=== PATIENT | male | born 1955 | race Hispanic/Latino ===

== ENCOUNTER 2018-10-13 12:46 | Inpatient (IN) | payer MEDICARE ==
[2018-10-13 12:53] VITALS: BMI 28.8
[2018-10-13] MEDS ORDERED: Piperacill/Tazo 3.375gm in Dex 3.375 GM/50 ML BAG IVPB STA (13:45)
[2018-10-13] MEDS ORDERED: Vancomycin 1 gm/NS 200 ml 1 GM/200 ML BAG IVPB STA (13:45)
[2018-10-13] MEDS ORDERED: Sodium Chloride 0.9% 1,000 ML IV ONE (13:45)
--- NOTE | 2018-10-13 13:45 | C.PDOC ---
History Of Present Illness 63 y/o male presents to the ED with new-onset redness to right foot for 1 week. Associated with worsening weakness, difficulty walking, malaise, over the past week. Patient is s/p right 1st toe amputation in May 2018. States he has not been able to follow up due to recent move to [facility], surgeon is from [facility]. No fever. Had 1 loose bowel movement yesterday. Also complains of decreased appetite. Patient is using cane/walker however lives in 2nd floor walk-up and feels that he cannot get around. account relationship manager is at bedside, reports patient withheld certain aspects of history. Patients roommate stated patient had expressed depression, not wanting to live anymore. Patient has hx of depression, unknown medication or compliance. PMD NONE Time Seen by Provider: 10/13/18 13:17 Chief Complaint (Nursing): Weakness/Neurological Deficit History Per: Patient History/Exam Limitations: no limitations Onset/Duration Of Symptoms: Days Current Symptoms Are (Timing): Still Present Past Medical History Reviewed: Historical Data, Nursing Documentation, Vital Signs Vital Signs: Last Vital Signs Temp 97.7 F 10/13/18 12:53 Pulse 105 H 10/13/18 13:05 Resp 16 10/13/18 13:05 BP 93/56 L 10/13/18 13:05 Pulse Ox 95 10/13/18 13:05 - Medical History PMH: Diabetes, HTN, Hyperlipidemia Other Surgeries: Right great toe amputation Family History: States: No Known Family Hx - Social History Hx Alcohol Use: No Hx Substance Use: No - Immunization History Hx Tetanus Toxoid Vaccination: No Hx Influenza Vaccination: No Hx Pneumococcal Vaccination: No Review Of Systems Except As Marked, All Systems Reviewed And Found Negative. Constitutional: Positive for: Weakness, Malaise. Negative for: Fever, Chills Cardiovascular: Negative for: Chest Pain Respiratory: Negative for: Shortness of Breath Gastrointestinal: Negative for: Nausea, Vomiting Musculoskeletal: Positive for: Foot Pain, Other (Redness to right foot) Neurological: Negative for: Numbness Physical Exam - Physical Exam Appears: Non-toxic, No Acute Distress Skin: Warm, Dry Head: Atraumatic, Normacephalic Eye(s): bilateral: Normal Inspection, PERRL, EOMI Oral Mucosa: Moist Neck: Normal ROM Chest: Symmetrical Respiratory: No Accessory Muscle Use, Other (NARD) Extremity: Normal ROM, No Calf Tenderness, Deformity (Right 1st toe amputation), No Swelling, Other (Cellulitis from distal right foot to mid-foot, no drainage) Pulses: Left Dorsalis Pedis: Normal, Right Dorsalis Pedis: Normal Neurological/Psych: Oriented x3, Normal Speech, Other (No focal deficits) ED Course And Treatment - Laboratory Results Result Diagrams: 10/13/18 14:04 10/13/18 14:04 ECG: Interpreted By Me ECG Rhythm: Sinus Rhythm ECG Interpretation: Normal Rate From EC O2 Sat by Pulse Oximetry: 95 (RA) Pulse Ox Interpretation: Normal - Radiology CXR: Interpreted by Me (NEG) - Other Rad R FOOT XR X-Ray: Interpreted by Me Interpretation: distal 1st metatarsal amputation, no acute findings Progress - Re-Evaluation Re-evaluation Note: 10/13/18 13:44 COUNTY DIRECTOR [employer] CEZAR [phone] 10/13/18 14:39 CODE SEPSIS. S/P IVF VS SIMPROVED 10/13/18 14:[address] KRISHNAMURTHY MED AUTOMOTIVE DETAILER 10/13/18 14:57 D/W DR KRISHNAMURTHY WILL ADMIT. WILL ARRANGE PODIATRY CONSULT - Data Reviewed Data Reviewed: Lab, Diagnostic imaging, EKG, Old records - Critical Care Citical Care: Excluding Proc Time Critical Care Time: 90 minutes Medical Decision Making Medical Decision Making: Initial Plan: --Labs --EKG --Chest x-ray --Right foot x-ray --IV fluids --Will start IV vanco and zosyn Records reviewed: No prior records at [facility]. Unknown cardiac status. Will defer sepsis protocol IV bolus at this time. Imaging reviewed, no acute findings. Disposition Counseled Patient/Family Regarding: Studies Performed, Diagnosis - Disposition Disposition: HOSPITALIZED Disposition Time: 14:58 Condition: SERIOUS - POA Present On Arrival: None - Clinical Impression Clinical Impression: Cellulitis of foot - Scribe Statement The provider has reviewed the documentation as recorded by the Oh Zavala Provider Attestation: All medical record entries made by the Oh were at my direction and personally dictated by me. I have reviewed the chart and agree that the record accurately reflects my personal performance of the history, physical exam, medical decision making, and the department course for this patient. I have also personally directed, reviewed, and agree with the discharge instructions and disposition.
[2018-10-13 14:14] LABS: BASO # 0.1 K/uL (0.0-0.2); BASO % 0.6 % (0.0-2.0); EOS % 0.4 % (0.0-4.0); HEMOGLOBIN 14.6 g/dL (12.0-18.0); LYMPH # 1.4 K/uL (1.0-4.3); LYMPH % 13.6 % (20.0-40.0); MEAN CELL VOLUME 86.1 fL (80.0-94.0); MEAN CORPUSCULAR HEMOGLOBIN 28.5 pg (27.0-31.0); MEAN CORPUSCULAR HGB CONC 33.1 g/dL (33.0-37.0); MEAN PLATELET VOLUME 7.6 fL (7.2-11.7); MONO # 0.7 K/uL (0.0-0.8); MONO % 7.1 % (0.0-10.0); NEUT % 78.3 % (50.0-75.0); NRBC % 0.1 % (0.0-2.0); RBC 5.12 Mil/uL (4.40-5.90); RED CELL DISTRIBUTION WIDTH 14.5 % (11.5-14.5); WHITE BLOOD COUNT 10.2 K/uL (4.8-10.8)
--- NOTE | 2018-10-13 14:22 | RAD ---
HISTORY: Sepsis Patient COMPARISON: None available. TECHNIQUE: Chest, one view. FINDINGS: Examination limited by habitus. LUNGS: Azygos lobe, anatomic variant. No focal consolidation. Please note that chest x-ray has limited sensitivity for the detection of pulmonary masses. PLEURA: No significant pleural effusion identified. No definite pneumothorax . CARDIOVASCULAR: Cardiomegaly. No significant atherosclerotic calcification present. OSSEOUS STRUCTURES: No acute osseous abnormality identified. VISUALIZED UPPER ABDOMEN: Unremarkable. OTHER FINDINGS: None. IMPRESSION: No focal consolidation. Cardiomegaly.
[2018-10-13] MEDS ORDERED: Sodium Chloride 0.9% 2,000 ML ONE (14:24)
[2018-10-13] MEDS ORDERED: Piperacillin/Tazobact 3.375 gm 100 ML IVPB ONE (14:24)
[2018-10-13 14:26] LABS: INR 1.3; PROTHROMBIN TIME 13.7 SECONDS (9.7-12.2)
[2018-10-13 14:28] LABS: ALB/GLOB RATIO 0.9 (1.0-2.1); ALBUMIN 4.2 g/dL (3.5-5.0); ALT/SGPT 28 U/L (21-72); AST/SGOT 26 U/L (17-59); BLOOD UREA NITROGEN 17 mg/dL (9-20); CALCIUM 9.5 mg/dl (8.6-10.4); GFR NON-AFRICAN AMERICAN 51
[2018-10-13] MEDS ORDERED: Piperacillin/Tazobact 3.375 gm 100 ML IVPB STA (14:32)
[2018-10-13 14:38] LABS: SQUAMOUS EPITHIAL < 1 /hpf (0-5); URINE BILIRUBIN NEGATIVE (NEGATIVE); URINE BLOOD NEGATIVE (NEGATIVE); URINE CLARITY Hazy (Clear); URINE COLOR Yellow (YELLOW); URINE GLUCOSE (UA) NORMAL (Normal); URINE LEUKOCYTE ESTERASE TRACE Leu/uL (Negative); URINE PROTEIN 1+ mg/dL (NEGATIVE)
[2018-10-13] MEDS ORDERED: Sodium Chloride 0.9% 250 ML IV ONE (14:38)
[2018-10-13 14:55] LABS: VENOUS BLOOD GAS BASE EXCESS -1.1 mmol/L (0.0-2.0); VENOUS BLOOD GAS PCO2 34 mmHg (40-60); VENOUS BLOOD GAS PO2 31 mm/Hg (30-55); VENOUS BLOOD PH 7.43 (7.32-7.43)
--- NOTE | 2018-10-13 15:00 | CP.PCM.HP ---
History of Present Illness - History of Present Illness History of Present Illness: COMPREHENSIVE HISTORY & PHYSICAL EXAM HPI 63 years old white male admitted with cellulitis of the right foot. A few months ago patient had amputation of the right big toe and [facility] in [place]. After that patient was admitted to rehab and patient had a complete healing of the right foot. Recently patient is complaining of now swelling of the right lower extremity with pain discomfort. Patient prese nted to [facility] and found to be tachycardic with slightly hypotensive. Currently patient has a cellulitis of the right foot. PAST HIST. Patient has a history of type II diabetes [id number] hypertension and hypercholesteremia. Patient has no history of coronary artery disease or carotid artery disease patient also has been checked for peripheral vascular disease and he denies it. Patient has no other medical illness in the past PERSONAL HIST: Smoking. N Alcohol. N Allergy N Travel_- . FAMILY HIST : ROS : Constitutional: Negative for weight change, chills, night sweats, fatigue and usage of assist device. Eyes: Negative for redness, swelling, itching, discharge, vision changes, blurry vision, double vision, glaucoma, cataracts, Ears: Negative for hearing loss, ringing, , tinnitus, vertigo Nose: Negative for rhinorrhea, stuffiness, sniffing, itching, postnasal drip, discoloration, nasal congestion and epistaxis. Throat: Negative for throat clearing, sore throat, hoarseness, difficulty swallowing and difficulty speaking. Respiratory: Negative for cough, chest tightness, sputum or phlegm, chronic cough, hemoptysis, wheezing, snoring at night, pleuritic chest pain and daytime somnolence. Cardiovascular: Negative for chest pain, palpitations, orthopnea, PND, Edema of legs, leg cramps, angina, claudication, , irregular heartbeat, Neurology: Negative for irritability, muscle weakness, numbness and tingling, seizures, tremors, migraines, slurred speech, syncope, memory loss, mood changes, recurrent headaches Gastrointestinal: Negative for difficulty swallowing, diarrhea, constipation, black stools, rectal bleeding, nausea, flatulence, reflux, poor appetite, changes in bowel habits, abdominal pain Genitourinary: Negative for frequent urination, hematuria, discharge, incontinence, urinary retention, frequent UTI, Psychiatric: Negative for depression, anxiety/panic, suicidal tendencies, Musculoskeletal: Negative for swollen joints, back pain, , neck pain, morning stiffness of joints, . Skin: Negative for rash, ulcers, itching, dry skin and pigmented lesions. P/E: Constitutional: Appears stated age and in no apparent distress. Head: Normocephalic. Ears: External ear canals patent without inflammation. Tympanic membranes intact with normal light reflex and landmark. Eyes: Pupils are central, bilaterally equal, symmetrical and reacts to light with normal movements and no icterus or pallor. Nose: External nares are patent. Mucosa is pink Mouth-Throat: Good general appearance and condition. No post-pharyngeal/oropharyngeal erythema and tonsillar hypertrophy. Good dental hygiene. Neck-Lymphatic: Neck is supple with normal ROM, no thyromegaly, lymph nodes or masses. JVD is normal with no carotid bruit. Lungs: Clear to percussion and auscultation with bilateral normal air entry. Cardiovascular: S1 and S2 are normal with no murmurs, gallops and rub. GI Exam: No hepatomegaly. Abdomen is soft and non-tender. No Organomegaly , masses or hernias are evident and bowel sounds are normal and active. Neurology: Higher function and all cranial nerves intact, with no gross motor or sensory deficit. Superficial and deep reflexes are normal with downwards p lanters. No cerebellar deficit with normal gait. Musculoskeletal: No tender spots with normal curvature of the spine with no swelling or restricted ROM of the small and large joints. Right foot the big toe is amputated and there is surrounding cellulitis and swelling of all the toes. The swelling is extending all the way up to do part of the foreleg. Extremities: Homans sign absent. Intact pulses with pitting edemaof the right leg Skin: No rash, eruptions or abnormal skin pigmentation LAB/RADIOLOGY: ASSESMENT : Status post amputation of the right big toe with reoccurrence of cellulitis of the right foot with possible osteomyelitis. Type II diabetes hypertension hypercholesterolemia stable. Plan Local wound care as per pediatrics IV antibiotics and manage sugars Present on Admission - Present on Admission Any Indicators Present on Admission: No Past Patient History - Past Social History Smoking Status: Never Smoked - CARDIAC Hx Hypertension: Yes - ENDOCRINE/METABOLIC Hx Endocrine Disorders: Yes Hx Diabetes Mellitus Type 2: Yes - MUSCULOSKELETAL/RHEUMATOLOGICAL Hx Musculoskeletal Disorders: Yes - PSYCHIATRIC Hx Substance Use: No - SURGICAL HISTORY Hx Surgeries: Yes Other/Comment: RIGHT GREAT TOE AMPUTATION - ANESTHESIA Hx Anesthesia: Yes Meds Allergies/Adverse Reactions: Allergies Allergy/AdvReac Type Severity Reaction Status Date / Time No Known Allergies Allergy Verified 10/13/18 12:51 Results - Vital Signs Recent Vital Signs: Last Vital Signs Temp 97.7 F 10/13/18 12:53 Pulse 91 H 10/13/18 14:35 Resp 16 10/13/18 14:35 BP 110/72 10/13/18 14:35 Pulse Ox 95 10/13/18 14:59 - Labs Result Diagrams: 10/13/18 14:04 10/13/18 14:04 Labs: Laboratory Results - last 24 hr 10/13/18 10/13/18 10/13/18 13:45 14:04 14:04 WBC 10.2 RBC 5.12 Hgb 14.6 Hct 44.1 MCV 86.1 MCH 28.5 MCHC 33.1 RDW 14.5 Plt Count 534 H MPV 7.6 Neut % (Auto) 78.3 H Lymph % (Auto) 13.6 L [place] % (Auto) 7.1 Eos % (Auto) 0.4 Baso % (Auto) 0.6 Neut # (Auto) 8.0 H Lymph # (Auto) 1.4 [place] # (Auto) 0.7 Eos # (Auto) 0.0 Baso # (Auto) 0.1 PT 13.7 H INR 1.3 APTT 29 pO2 31 VBG pH 7.43 VBG pCO2 34 L VBG HCO3 23.1 VBG Total CO2 23.6 VBG O2 Sat (Calc) 63.8 VBG Base Excess -1.1 L VBG Potassium 4.5 Sodium 141.0 Chloride 106.0 Glucose 97 Lactate 4.8 H* Crit Value Called To Rn Crit Value Called By Gabo cruz Crit Value Read Back Rn Blood Gas Notified Time 1425 Potassium Carbon Dioxide Anion Gap BUN Creatinine Est GFR ( Amer) Est GFR (Non-Af Amer) Random Glucose Calcium Phosphorus Magnesium Total Bilirubin AST ALT Alkaline Phosphatase Total Protein Albumin Globulin Albumin/Globulin Ratio Venous Blood Potassium 4.5 Urine Color Urine Clarity Urine pH Ur Specific [place] Urine Protein Urine Glucose (UA) Urine Ketones Urine Blood Urine Nitrate Urine Bilirubin Urine Urobilinogen Ur Leukocyte Esterase Urine WBC (Auto) Urine RBC (Auto) Ur Squamous Epith Cells Hyaline Casts 10/13/18 10/13/18 14:04 14:18 WBC RBC Hgb Hct MCV MCH MCHC RDW Plt Count MPV Neut % (Auto) Lymph % (Auto) [place] % (Auto) Eos % (Auto) Baso % (Auto) Neut # (Auto) Lymph # (Auto) [place] # (Auto) Eos # (Auto) Baso # (Auto) PT INR APTT pO2 VBG pH VBG pCO2 VBG HCO3 VBG Total CO2 VBG O2 Sat (Calc) VBG Base Excess VBG Potassium Sodium 141 Chloride 104 Glucose Lactate Crit Value Called To Crit Value Called By Crit Value Read Back Blood Gas Notified Time Potassium 4.3 Carbon Dioxide 22 Anion Gap 19 BUN 17 Creatinine 1.4 Est GFR ( Amer) > 60 Est GFR (Non-Af Amer) 51 Random Glucose 105 Calcium 9.5 Phosphorus 3.9 Magnesium 2.1 Total Bilirubin 1.2 AST 26 ALT 28 Alkaline Phosphatase 122 Total Protein 9.1 H Albumin 4.2 Globulin 4.9 H Albumin/Globulin Ratio 0.9 L Venous Blood Potassium Urine Color Yellow Urine Clarity Hazy Urine pH 5.0 Ur Specific [place] 1.018 Urine Protein 1+ H Urine Glucose (UA) Normal Urine Ketones Negative Urine Blood Negative Urine Nitrate Negative Urine Bilirubin Negative Urine Urobilinogen 2.0 Ur Leukocyte Esterase Trace Urine WBC (Auto) 29 H Urine RBC (Auto) 3 Ur Squamous Epith Cells < 1 Hyaline Casts 3-5 H
--- NOTE | 2018-10-13 15:55 | RAD ---
Date of service: 10/13/2018 PROCEDURE: Right Foot Radiographs. HISTORY: REDNESS COMPARISON: None. FINDINGS: BONES: Status placed amputation of the great toe. There is no acute displaced fracture or bone destruction. Bone alignment is normal. There is a large os trigonum. There is a large plantar calcaneal spur. JOINTS: Normal. SOFT TISSUES: There is moderate dorsal soft tissue swelling and subcutaneous edema. OTHER FINDINGS: None. IMPRESSION: Status post great toe amputation. Moderate dorsal soft tissue swelling and subcutaneous edema which may represent cellulitis in the appropriate clinical setting.
[2018-10-13 16:22] LABS: VENOUS BLOOD GAS BASE EXCESS -1.1 mmol/L (0.0-2.0); VENOUS BLOOD GAS PCO2 34 mmHg (40-60); VENOUS BLOOD GAS PO2 40 mm/Hg (30-55); VENOUS BLOOD PH 7.43 (7.32-7.43)
--- NOTE | 2018-10-13 20:33 | CP.PCM.CON ---
History of Present Illness - History of Present Illness History of Present Illness: INFECTIOUS DISEASE CONSULT; HPI; 63 y/o male presents to the ED with new-onset redness to right foot for 1 week. Associated with worsening weakness, difficulty walking, malaise, over the past week. Patient is s/p right 1st toe amputation in May 2018. States he has not been able to follow up due to recent move to [facility], surgeon is from [facility]. denies fever or chills. Also complains of decreased appetite. Patient is using cane/walker however lives on 2nd floor walk-up and feels that he cannot get around. PATIENT WAS CODE SEPSIS ON ADMISSION WITH SERUM LACTATE OF 4.8, PRESENTLY 2.0. PATIENT WAS PANCULTURED AND GIVEN VANCOMYCIN 1 G AND zOSYN 3.375 G ONE DOSE EACH. INFECTIOUS DISEASE CONSULT REQUESTED BY PMD FOR FURTHER EVALUATION AND iv ANTIBIOTICS. PMH: Diabetes, HTN, Hyperlipidemia Other Surgeries: Right great toe amputation Family History: States: No Known Family Hx - Social History Hx Alcohol Use: No Hx Substance Use: No PATIENT IS A . NO CHILDREN HAD LUPUS. lIVES ALONE. - Immunization History Hx Tetanus Toxoid Vaccination: No Hx Influenza Vaccination: No Hx Pneumococcal Vaccination: No Review of Systems - Constitutional Constitutional: Lethargy (DECREASED APPETITE.), Malaise. absent: Chills, Fever - EENT Eyes: absent: Change in Vision Nose/Mouth/Throat: absent: Mouth Lesions - Cardiovascular Cardiovascular: absent: Chest Pain, Dyspnea, Dyspnea on Exertion - Respiratory Respiratory: absent: Cough - Gastrointestinal Gastrointestinal: absent: Abdominal Pain, Constipation, Diarrhea, Odynophagia - Genitourinary Genitourinary: absent: Dysuria, Urinary Hesitance, Freq UTI - Neurological Neurological: absent: Headaches - Psychiatric Psychiatric: Depression - Hematologic/Lymphatic Hematologic: As Per HPI. absent: Easy Bruising, Lymphadenopathy Past Patient History - Past Social History Smoking Status: Never Smoked - CARDIAC Hx Hypertension: Yes - ENDOCRINE/METABOLIC Hx Endocrine Disorders: Yes Hx Diabetes Mellitus Type 2: Yes - MUSCULOSKELETAL/RHEUMATOLOGICAL Hx Musculoskeletal Disorders: Yes - PSYCHIATRIC Hx Substance Use: No - SURGICAL HISTORY Hx Surgeries: Yes Other/Comment: RIGHT GREAT TOE AMPUTATION - ANESTHESIA Hx Anesthesia: Yes Meds Allergies/Adverse Reactions: Allergies Allergy/AdvReac Type Severity Reaction Status Date / Time No Known Allergies Allergy Verified 10/13/18 12:51 - Medications Medications: Current Medications Citalopram Hydrobromide (Celexa) 20 mg PO DAILY [facility] Hydrochlorothiazide (Microzide) 12.5 mg PO DAILY [facility] Piperacillin Sod/Tazobactam Sod (Zosyn 3.375 Gm Iv Premix) 3.375 gm in 50 mls @ 200 mls/hr IVPB Q8H [facility]; Protocol Vancomycin/Sodium Chloride (Vancomycin 1 Gm/Ns 200 Ml) 1 gm in 200 mls @ 133 mls/hr IVPB DAILY [facility]; Protocol Stop: 10/19/18 10:01 Insulin Human Regular (Novolin R) 0 unit SC ACHS [facility]; Protocol Lisinopril (Zestril) 40 mg PO DAILY [facility] Metformin HCl (Glucophage) 1,000 mg PO BID [facility] Last Admin: 10/13/18 19:35 Dose: 1,000 mg Rosuvastatin Calcium (Crestor) 10 mg PO HS [facility] Physical Exam - Constitutional Appears: No Acute Distress - Head Exam Head Exam: NORMAL INSPECTION - Eye Exam Eye Exam: EOMI, PERRL - ENT Exam ENT Exam: Normal Oropharynx - Respiratory Exam Respiratory Exam: Clear to Auscultation Bilateral, NORMAL BREATHING PATTERN - Cardiovascular Exam Cardiovascular Exam: REGULAR RHYTHM, +S1, +S2 - GI/Abdominal Exam GI & Abdominal Exam: Normal Bowel Sounds, Soft. absent: Organomegaly - Extremities Exam Extremities exam: Positive for: pedal edema (RIGHT LOWER EXTREMITY EDEMA MILD. S/P BIG TOE AMPUTATION. ERYTHEMA AND WARMTH RIGHT DORSUM FOOT.). Negative for: calf tenderness Results - Vital Signs Recent Vital Signs: Last Vital Signs Temp 97.4 F L 10/13/18 17:00 Pulse 80 10/13/18 17:00 Resp 20 10/13/18 17:00 BP 144/77 10/13/18 17:00 Pulse Ox 97 10/13/18 17:00 - Labs Result Diagrams: 10/13/18 14:04 10/13/18 14:04 Labs: Laboratory Results - last 24 hr 10/13/18 10/13/18 10/13/18 13:45 14:04 14:04 WBC 10.2 RBC 5.12 Hgb 14.6 Hct 44.1 MCV 86.1 MCH 28.5 MCHC 33.1 RDW 14.5 Plt Count 534 H MPV 7.6 Neut % (Auto) 78.3 H Lymph % (Auto) 13.6 L [place] % (Auto) 7.1 Eos % (Auto) 0.4 Baso % (Auto) 0.6 Neut # (Auto) 8.0 H Lymph # (Auto) 1.4 [place] # (Auto) 0.7 Eos # (Auto) 0.0 Baso # (Auto) 0.1 PT 13.7 H INR 1.3 APTT 29 pO2 31 VBG pH 7.43 VBG pCO2 34 L VBG HCO3 23.1 VBG Total CO2 23.6 VBG O2 Sat (Calc) 63.8 VBG Base Excess -1.1 L VBG Potassium 4.5 Sodium 141.0 Chloride 106.0 Glucose 97 Lactate 4.8 H* Crit Value Called To Rn Crit Value Called By Gabo cruz Crit Value Read Back Rn Blood Gas Notified Time 1425 Potassium Carbon Dioxide Anion Gap BUN Creatinine Est GFR ( Amer) Est GFR (Non-Af Amer) POC Glucose (mg/dL) Random Glucose Calcium Phosphorus Magnesium Total Bilirubin AST ALT Alkaline Phosphatase Total Protein Albumin Globulin Albumin/Globulin Ratio Venous Blood Potassium 4.5 Urine Color Urine Clarity Urine pH Ur Specific [place] Urine Protein Urine Glucose (UA) Urine Ketones Urine Blood Urine Nitrate Urine Bilirubin Urine Urobilinogen Ur Leukocyte Esterase Urine WBC (Auto) Urine RBC (Auto) Ur Squamous Epith Cells Hyaline Casts 10/13/18 10/13/18 10/13/18 14:04 14:18 16:15 WBC RBC Hgb Hct MCV MCH MCHC RDW Plt Count MPV Neut % (Auto) Lymph % (Auto) [place] % (Auto) Eos % (Auto) Baso % (Auto) Neut # (Auto) Lymph # (Auto) [place] # (Auto) Eos # (Auto) Baso # (Auto) PT INR APTT pO2 40 VBG pH 7.43 VBG pCO2 34 L VBG HCO3 23.5 VBG Total CO2 23.6 VBG O2 Sat (Calc) 78.9 H VBG Base Excess -1.1 L VBG Potassium 4.1 Sodium 141 139.0 Chloride 104 111.0 H Glucose 103 Lactate 2.0 Crit Value Called To Crit Value Called By Crit Value Read Back Blood Gas Notified Time Potassium 4.3 Carbon Dioxide 22 Anion Gap 19 BUN 17 Creatinine 1.4 Est GFR ( Amer) > 60 Est GFR (Non-Af Amer) 51 POC Glucose (mg/dL) Random Glucose 105 Calcium 9.5 Phosphorus 3.9 Magnesium 2.1 Total Bilirubin 1.2 AST 26 ALT 28 Alkaline Phosphatase 122 Total Protein 9.1 H Albumin 4.2 Globulin 4.9 H Albumin/Globulin Ratio 0.9 L Venous Blood Potassium 4.1 Urine Color Yellow Urine Clarity Hazy Urine pH 5.0 Ur Specific [place] 1.018 Urine Protein 1+ H Urine Glucose (UA) Normal Urine Ketones Negative Urine Blood Negative Urine Nitrate Negative Urine Bilirubin Negative Urine Urobilinogen 2.0 Ur Leukocyte Esterase Trace Urine WBC (Auto) 29 H Urine RBC (Auto) 3 Ur Squamous Epith Cells < 1 Hyaline Casts 3-5 H 10/13/18 18:33 WBC RBC Hgb Hct MCV MCH MCHC RDW Plt Count MPV Neut % (Auto) Lymph % (Auto) [place] % (Auto) Eos % (Auto) Baso % (Auto) Neut # (Auto) Lymph # (Auto) [place] # (Auto) Eos # (Auto) Baso # (Auto) PT INR APTT pO2 VBG pH VBG pCO2 VBG HCO3 VBG Total CO2 VBG O2 Sat (Calc) VBG Base Excess VBG Potassium Sodium Chloride Glucose Lactate Crit Value Called To Crit Value Called By Crit Value Read Back Blood Gas Notified Time Potassium Carbon Dioxide Anion Gap BUN Creatinine Est GFR ( Amer) Est GFR (Non-Af Amer) POC Glucose (mg/dL) 104 Random Glucose Calcium Phosphorus Magnesium Total Bilirubin AST ALT Alkaline Phosphatase Total Protein Albumin Globulin Albumin/Globulin Ratio Venous Blood Potassium Urine Color Urine Clarity Urine pH Ur Specific [place] Urine Protein Urine Glucose (UA) Urine Ketones Urine Blood Urine Nitrate Urine Bilirubin Urine Urobilinogen Ur Leukocyte Esterase Urine WBC (Auto) Urine RBC (Auto) Ur Squamous Epith Cells Hyaline Casts - Imaging and Cardiology X-RAY RIGHT FOOT Status: Report reviewed by me Assessment & Plan (1) Sepsis associated hypotension Status: Acute (2) Cellulitis of foot Status: Acute (3) Diabetes mellitus Status: Acute (4) Hyperlipidemia associated with type 2 diabetes mellitus Status: Acute - Assessment and Plan (Free Text) Plan: PANCULTURES. ESR CRP. cONTINUE iv zOSYN 3.375 EVERY 8 HOURLY 10/13/18. cONTINUE iv VANCOMYCIN 1 G EVERY 24 HOURLY 10/13/18. F/U VANCO TROUGH LEVELS PRIOR TO THE FOURTH DOSE, AND KEEP BETWEEN 10 AND 20MG/DL. PODIATRY EVALUATION. THREE-PHASE BONE SCAN RT FOOT R/O OSTEOMYELITIS. lOCAL WOUND CARE. WILL FOLLOW ALONG WITH YOU AND MAKE FURTHER RECOMMENDATIONS NEEDED.
[2018-10-13] MEDS: (Novolin R) Insulin Human Regular 100 units/ml vial SC SCH (22:32)
[2018-10-13] MEDS: Piperacill/Tazo 3.375gm in Dex 3.375 GM/50 ML BAG IVPB SCH (23:06)
[2018-10-14] MEDS: Piperacill/Tazo 3.375gm in Dex 3.375 GM/50 ML BAG IVPB SCH ×3 (06:15→22:45)
[2018-10-14 06:43] LABS: BASO # 0.1 K/uL (0.0-0.2); BASO % 0.9 % (0.0-2.0); EOS # 0.2 K/uL (0.0-0.7); HEMOGLOBIN 12.4 g/dL (12.0-18.0); LYMPH # 1.5 K/uL (1.0-4.3); LYMPH % 18.2 % (20.0-40.0); MEAN CELL VOLUME 86.4 fL (80.0-94.0); MEAN CORPUSCULAR HEMOGLOBIN 28.2 pg (27.0-31.0); MEAN CORPUSCULAR HGB CONC 32.7 g/dL (33.0-37.0); MEAN PLATELET VOLUME 7.6 fL (7.2-11.7); MONO # 0.7 K/uL (0.0-0.8); MONO % 8.6 % (0.0-10.0); NEUT # 5.7 K/uL (1.8-7.0); NEUT % 70.3 % (50.0-75.0); RBC 4.41 Mil/uL (4.40-5.90); RED CELL DISTRIBUTION WIDTH 14.4 % (11.5-14.5); WHITE BLOOD COUNT 8.1 K/uL (4.8-10.8)
[2018-10-14 06:50] LABS: ALB/GLOB RATIO 0.8 (1.0-2.1); ALBUMIN 3.4 g/dL (3.5-5.0); ALT/SGPT 22 U/L (21-72); AST/SGOT 22 U/L (17-59); BILIRUBIN,DIRECT 0.4 mg/dL (0.0-0.4); BLOOD UREA NITROGEN 14 mg/dL (9-20); CALCIUM 8.4 mg/dl (8.6-10.4); GFR NON-AFRICAN AMERICAN > 60
[2018-10-14] MEDS: (Novolin R) Insulin Human Regular 100 units/ml vial SC SCH ×4 (07:30→21:32)
[2018-10-14] MEDS: Vancomycin 1 gm/NS 200 ml 1 GM/200 ML BAG IVPB SCH (10:45)
[2018-10-14] MEDS: Enoxaparin 40 mg Syringe SC SCH (10:50)
--- NOTE | 2018-10-14 14:46 | CP.PCM.PN ---
Subjective - Date & Time of Evaluation Date of Evaluation: 10/14/18 Time of Evaluation: 14:43 - Subjective Subjective: CHIEF COMPLAINTS TODAY : afebrile, c/o pain rt. foot foul odor rt.foot pt went for 3phase bone scan today ROS. HEENT : N. Resp : No cough, wheezing ,pleuritic CP ,or hemoptysis Cardio : No anginal CP, PND, orthopnea, palpitation GI : No abd.pain, n/v ,diarrhea or GI bleeding . INTEGRITY ENGINEER : No headache, vertigo, focal deficit. Musculoskel : No joint swelling , Derm : No rash Psych : Normal affect. Ext : Pain and swelling of the right foot PE. Pt. is alert awake in no distress. V.S As noted in the chart Head ,ear nose,throat and eyes : Normal. Neck : Supple with normal carotids. Lungs: Clear air entry. Heart : S1 & S2 normal with S4. No murmur. Abd : Soft non tender with normal bowel sounds. Neuro : Moves all ext. with no localized deficit. Ext : Amputation of the right big toe. Swelling and cellulitis extending from the dorsum of the foot up to mid part of the right foot +ve drainage from sinus tract with packing,2nd digit macerated tip with dusky look-impending gangrene Derm : No rashes or decubitus ulcer. LABS/RADIOLOGY: wound culture + strep grp G/ GNR Objective - Vital Signs/Intake and Output Vital Signs (last 24 hours): Temp Pulse Resp BP Pulse Ox 97.8 F 67 18 132/82 97 10/14/18 07:05 10/14/18 07:25 10/14/18 07:05 10/14/18 07:05 10/14/18 07:05 Intake and Output: 10/14/18 10/14/18 06:59 18:59 Intake Total 600 580 Output Total 606 Balance -6 580 - Medications Medications: Current Medications Citalopram Hydrobromide (Celexa) 20 mg PO DAILY [facility] Last Admin: 10/14/18 10:46 Dose: 20 mg Enoxaparin Sodium (Lovenox) 40 mg SC DAILY [facility] Last Admin: 10/14/18 10:50 Dose: 40 mg Hydrochlorothiazide (Microzide) 12.5 mg PO DAILY [facility] Last Admin: 10/14/18 10:46 Dose: 12.5 mg Piperacillin Sod/Tazobactam Sod (Zosyn 3.375 Gm Iv Premix) 3.375 gm in 50 mls @ 200 mls/hr IVPB Q8H [facility]; Protocol Last Admin: 10/14/18 06:15 Dose: 200 mls/hr Vancomycin/Sodium Chloride (Vancomycin 1 Gm/Ns 200 Ml) 1 gm in 200 mls @ 133 mls/hr IVPB DAILY [facility]; Protocol Stop: 10/19/18 10:01 Last Admin: 10/14/18 10:45 Dose: 133 mls/hr Insulin Human Regular (Novolin R) 0 unit SC ACHS [facility]; Protocol Last Admin: 10/14/18 12:00 Dose: Not Given Lisinopril (Zestril) 40 mg PO DAILY [facility] Last Admin: 10/14/18 10:58 Dose: 40 mg Metformin HCl (Glucophage) 1,000 mg PO BID [facility] Last Admin: 10/14/18 10:46 Dose: 1,000 mg Pneumococcal Polyvalent Vaccine (Pneumovax 23 Vaccine) 0.5 ml IM .ONCE ONE Stop: 10/16/18 10:01 Rosuvastatin Calcium (Crestor) 10 mg PO HS [facility] Last Admin: 10/13/18 23:06 Dose: 10 mg - Labs Labs: 10/14/18 06:28 10/14/18 06:28 PT 13.7 SECONDS (9.7-12.2) H 10/13/18 14:04 INR 1.3 10/13/18 14:04 APTT 29 SECONDS (21-34) 10/13/18 14:04 Assessment and Plan (1) Sepsis associated hypotension Status: Acute (2) Diabetic foot infection Status: Acute (3) Cellulitis of foot Status: Acute (4) Diabetes mellitus Status: Acute (5) Hyperlipidemia associated with type 2 diabetes mellitus Status: Acute - Assessment and Plan (Free Text) Plan: ASSESSMENT/PLAN : CONTINUE iv zOSYN 3.375 EVERY 8 HOURLY 10/13/18. CONTINUE iv VANCOMYCIN 1 G EVERY 24 HOURLY 10/13/18. F/U VANCO TROUGH LEVELS PRIOR TO THE FOURTH DOSE, AND KEEP BETWEEN 10 AND 20MG/DL. Continue local wound care F/U CULTURES TO ADJUST ABX. follow-up the 3 phase bone scan . PODIATRY CONSULT W DR PLUMMER. CASE DISCUSSED WITH STAFF /PMD.
--- NOTE | 2018-10-14 15:06 | CP.PCM.PN ---
Subjective - Date & Time of Evaluation Date of Evaluation: 10/14/18 Time of Evaluation: 15:03 - Subjective Subjective: CHIEF COMPLAINTS TODAY : Patient has mild pain in the right foot afebrile ROS. HEENT : N. Resp : No cough, wheezing ,pleuritic CP ,or hemoptysis Cardio : No anginal CP, PND, orthopnea, palpitation GI : No abd.pain, n/v ,diarrhea or GI bleeding . TOOL AND DIE TECHNICIAN : No headache, vertigo, focal deficit. Musculoskel : No joint swelling , Derm : No rash Psych : Normal affect. Ext : Pain and swelling of the right foot PE. Pt. is alert awake in no distress. V.S As noted in the chart Head ,ear nose,throat and eyes : Normal. Neck : Supple with normal carotids. Lungs: Clear air entry. Heart : S1 & S2 normal with S4. No murmur. Abd : Soft non tender with normal bowel sounds. Neuro : Moves all ext. with no localized deficit. Ext : Amputation of the right big toe. Swelling and cellulitis extending from the dorsum of the foot up to mid part of the right leg. Derm : No rashes or decubitus ulcer. LABS/RADIOLOGY: Culture of the wound shows gram-negative rods and group G strep ASSESSMENT/PLAN : Continue local wound care IV antibiotics and follow-up the bone scan Objective - Vital Signs/Intake and Output Vital Signs (last 24 hours): Temp Pulse Resp BP Pulse Ox 97.8 F 67 18 132/82 97 10/14/18 07:05 10/14/18 07:25 10/14/18 07:05 10/14/18 07:05 10/14/18 07:05 Intake and Output: 10/14/18 10/14/18 11:59 23:59 Intake Total 200 580 Output Total 600 Balance -400 580 - Medications Medications: Current Medications Citalopram Hydrobromide (Celexa) 20 mg PO DAILY [facility] Last Admin: 10/14/18 10:46 Dose: 20 mg Enoxaparin Sodium (Lovenox) 40 mg SC DAILY [facility] Last Admin: 10/14/18 10:50 Dose: 40 mg Hydrochlorothiazide (Microzide) 12.5 mg PO DAILY [facility] Last Admin: 10/14/18 10:46 Dose: 12.5 mg Piperacillin Sod/Tazobactam Sod (Zosyn 3.375 Gm Iv Premix) 3.375 gm in 50 mls @ 200 mls/hr IVPB Q8H [facility]; Protocol Last Admin: 10/14/18 06:15 Dose: 200 mls/hr Vancomycin/Sodium Chloride (Vancomycin 1 Gm/Ns 200 Ml) 1 gm in 200 mls @ 133 mls/hr IVPB DAILY [facility]; Protocol Stop: 10/19/18 10:01 Last Admin: 10/14/18 10:45 Dose: 133 mls/hr Insulin Human Regular (Novolin R) 0 unit SC ACHS [facility]; Protocol Last Admin: 10/14/18 12:00 Dose: Not Given Lisinopril (Zestril) 40 mg PO DAILY [facility] Last Admin: 10/14/18 10:58 Dose: 40 mg Metformin HCl (Glucophage) 1,000 mg PO BID [facility] Last Admin: 10/14/18 10:46 Dose: 1,000 mg Pneumococcal Polyvalent Vaccine (Pneumovax 23 Vaccine) 0.5 ml IM .ONCE ONE Stop: 10/16/18 10:01 Rosuvastatin Calcium (Crestor) 10 mg PO HS [facility] Last Admin: 10/13/18 23:06 Dose: 10 mg - Labs Labs: 10/14/18 06:28 10/14/18 06:28 PT 13.7 SECONDS (9.7-12.2) H 10/13/18 14:04 INR 1.3 10/13/18 14:04 APTT 29 SECONDS (21-34) 10/13/18 14:04
--- NOTE | 2018-10-14 17:32 | CARD ---
APPROVED REPORT Date of service: 10/13/2018 EKG Measurement Heart [id number] <Conclusion> Normal sinus rhythm Left axis deviation Possible Anterior infarct, age undetermined Abnormal ECG
--- NOTE | 2018-10-14 19:53 | NM ---
Date of service: 10/14/2018 PROCEDURE: Three phases feet and lower extremities bone Scan HISTORY: RT FOOT OM/S/P AMPUTATION RT BIG TOE COMPARISON: Comparison is made to the previous x-ray of the right foot dated 10/13/2018 TECHNIQUE: Following administration of 21.9 miCu of Tc MDP, three phases images of the feet and distal lower extremities were obtained. FINDINGS: The blood flow images demonstrate increased blood flow to the distal portion of the right foot. The blood pool images demonstrate hyperemia at the distal portion of right 1st metatarsal bone and at the 2nd toe. The delayed images demonstrate focal intense increased radiotracer accumulation at distal phalanx of the 2nd toe suggestive of acute osteomyelitis. There are foci of [id number] increased tracer accumulation at the bilateral ankle joints right tarsal metatarsal joints and in the distal 1st metatarsal bone at the site of amputation. There is also increased tracer uptake at the knees and ankles suggestive of arthritic degenerative changes. Other findings: None. IMPRESSION: Findings suggestive of osteomyelitis at the distal portion of the 2nd toe. Increased radiotracer uptake at the distal portion of the 1st metatarsal bone likely postsurgical changes. Arthritic degenerative changes.
[2018-10-15] MEDS: (Novolin R) Insulin Human Regular 100 units/ml vial SC SCH ×4 (07:30→21:36)
[2018-10-15 08:24] LABS: ALB/GLOB RATIO 0.8 (1.0-2.1); ALBUMIN 3.7 g/dL (3.5-5.0); ALT/SGPT 24 U/L (21-72); AST/SGOT 24 U/L (17-59); BLOOD UREA NITROGEN 12 mg/dL (9-20); CALCIUM 9.1 mg/dl (8.6-10.4); GFR NON-AFRICAN AMERICAN > 60
[2018-10-15 08:27] LABS: BASO % 0.4 % (0.0-2.0); EOS # 0.2 K/uL (0.0-0.7); EOS % 2.5 % (0.0-4.0); HEMOGLOBIN 13.7 g/dL (12.0-18.0); LYMPH # 1.4 K/uL (1.0-4.3); LYMPH % 18.2 % (20.0-40.0); MEAN CELL VOLUME 85.5 fL (80.0-94.0); MEAN CORPUSCULAR HEMOGLOBIN 29.3 pg (27.0-31.0); MEAN CORPUSCULAR HGB CONC 34.3 g/dL (33.0-37.0); MEAN PLATELET VOLUME 7.6 fL (7.2-11.7); MONO # 0.7 K/uL (0.0-0.8); MONO % 9.4 % (0.0-10.0); NEUT # 5.2 K/uL (1.8-7.0); NEUT % 69.5 % (50.0-75.0); NRBC % 0.2 % (0.0-2.0); RBC 4.66 Mil/uL (4.40-5.90); RED CELL DISTRIBUTION WIDTH 14.5 % (11.5-14.5); WHITE BLOOD COUNT 7.5 K/uL (4.8-10.8)
[2018-10-15] MEDS: Enoxaparin 40 mg Syringe SC SCH (08:59)
[2018-10-15] MEDS: Vancomycin 1 gm/NS 200 ml 1 GM/200 ML BAG IVPB SCH (09:38)
--- NOTE | 2018-10-15 12:03 | CP.PCM.CON ---
History of Present Illness - History of Present Illness History of Present Illness: Podiatry consult note for attending Radha Jesus 63 y/o male patient with PMH of Diabetes, HTN, Hyperlipidemia seen and evaluated at the bedside with attending Dr. Jesus for redness and drainage at his right foot for 1 week. Patientstates that he had right 1st toe amputation in May [address] Debbie Carroll at [facility]. He states he has not been able to follow up due to recent move to [facility]. Patient states that 1 week ago he started to notice redness, swelling and drainage from his surgey site and from the 2nd right toe. Patient states that it got worse. he states that this started after he banged his right foot last week. Patient denies any pain to his right foot. He denies any recent F/N/V/C or SOB. He denies any other pedal complaint at this time. PMH: Diabetes, HTN, Hyperlipidemia PSH: Right great toe amputation. Allergies: NKDA Social Hx: Denies smoking, EtOH use or illicit drug use Past Patient History - Past Medical History & Family History Past Medical History?: Yes - Past Social History Smoking Status: Never Smoked - CARDIAC Hx Hypertension: Yes - ENDOCRINE/METABOLIC Hx Endocrine Disorders: Yes Hx Diabetes Mellitus Type 2: Yes - MUSCULOSKELETAL/RHEUMATOLOGICAL Hx Musculoskeletal Disorders: Yes - PSYCHIATRIC Hx Substance Use: No - SURGICAL HISTORY Hx Surgeries: Yes Other/Comment: RIGHT GREAT TOE AMPUTATION - ANESTHESIA Hx Anesthesia: Yes Meds Allergies/Adverse Reactions: Allergies Allergy/AdvReac Type Severity Reaction Status Date / Time No Known Allergies Allergy Verified 10/13/18 12:51 - Medications Medications: Current Medications Citalopram Hydrobromide (Celexa) 20 mg PO DAILY [facility] Last Admin: 10/15/18 08:59 Dose: 20 mg Enoxaparin Sodium (Lovenox) 40 mg SC DAILY [facility] Last Admin: 10/15/18 08:59 Dose: 40 mg Hydrochlorothiazide (Microzide) 12.5 mg PO DAILY [facility] Last Admin: 10/15/18 08:59 Dose: 12.5 mg Insulin Human Regular (Novolin R) 0 unit SC [facility]; Protocol Last Admin: 10/15/18 11:23 Dose: Not Given Lisinopril (Zestril) 40 mg PO DAILY [facility] Last Admin: 10/15/18 09:02 Dose: 40 mg Metformin HCl (Glucophage) 1,000 mg PO BID [facility] Last Admin: 10/15/18 08:59 Dose: 1,000 mg Pneumococcal Polyvalent Vaccine (Pneumovax 23 Vaccine) 0.5 ml IM .ONCE ONE Stop: 10/16/18 10:01 Rosuvastatin Calcium (Crestor) 10 mg PO HS [facility] Last Admin: 10/14/18 21:32 Dose: 10 mg Physical Exam - Constitutional Appears: No Acute Distress - Head Exam Head Exam: ATRAUMATIC, NORMOCEPHALIC - Extremities Exam Additional comments: B/LLE focused exam: Vasc: DP/PT pulses faintly palpable 1/4 b/l. Cap refill < 3 seconds to all digits. Skin temperature gradient warm to warm from proximal to distal on the right side and warm to cool on the left side. Moderate non pitting edema and erythema noted at the right forefoot. Neuro: Gross and protective sensations are grossly diminished b/l Derm: Surgical site of right 1st toe and partial 1st met ressection noted. The surgical wound is closed with no signs of dehesience but anterior to it there is an open sinus draining pus. an ulcer noted in the tip of the 2nd toe measuring 0.2cmX0.2cmX0.4cm, Probing tall the way down to bone, positive purulent drainage, Mild malodor, Moderate non pitting edema and erythema noted at the periulcerative area and extending up to the right forefoot. positive clinical signs of infection MSK: Muscle power intact 5/5 to all major muscle groups b/l. No pain on palpating the right foot periulcerative area. - Neurological Exam Neurological exam: Alert, Oriented x3 Results - Vital Signs Recent Vital Signs: Last Vital Signs Temp 98.0 F 10/15/18 07:05 Pulse 84 10/15/18 08:36 Resp 20 10/15/18 07:05 BP 129/81 10/14/18 23:30 Pulse Ox 96 10/14/18 23:30 - Labs Result Diagrams: 10/15/18 07:59 10/15/18 07:59 Labs: Laboratory Results - last 24 hr 10/14/18 10/14/18 10/14/18 12:00 16:57 21:32 WBC RBC Hgb Hct MCV MCH MCHC RDW Plt Count MPV Neut % (Auto) Lymph % (Auto) [place] % (Auto) Eos % (Auto) Baso % (Auto) Neut # (Auto) Lymph # (Auto) [place] # (Auto) Eos # (Auto) Baso # (Auto) Sodium Potassium Chloride Carbon Dioxide Anion Gap BUN Creatinine Est GFR ( Amer) Est GFR (Non-Af Amer) POC Glucose (mg/dL) 99 105 95 Random Glucose Calcium Total Bilirubin AST ALT Alkaline Phosphatase Total Protein Albumin Globulin Albumin/Globulin Ratio 10/15/18 10/15/18 10/15/18 06:34 07:59 07:59 WBC 7.5 RBC 4.66 Hgb 13.7 Hct 39.9 MCV 85.5 MCH 29.3 MCHC 34.3 RDW 14.5 Plt Count 498 H MPV 7.6 Neut % (Auto) 69.5 Lymph % (Auto) 18.2 L [place] % (Auto) 9.4 Eos % (Auto) 2.5 Baso % (Auto) 0.4 Neut # (Auto) 5.2 Lymph # (Auto) 1.4 [place] # (Auto) 0.7 Eos # (Auto) 0.2 Baso # (Auto) 0.0 Sodium 136 Potassium 4.4 Chloride 99 Carbon Dioxide 26 Anion Gap 15 BUN 12 Creatinine 0.9 Est GFR ( Amer) > 60 Est GFR (Non-Af Amer) > 60 POC Glucose (mg/dL) 104 Random Glucose 107 Calcium 9.1 Total Bilirubin 0.8 AST 24 ALT 24 Alkaline Phosphatase 87 Total Protein 8.1 Albumin 3.7 Globulin 4.4 H Albumin/Globulin Ratio 0.8 L 10/15/18 11:17 WBC RBC Hgb Hct MCV MCH MCHC RDW Plt Count MPV Neut % (Auto) Lymph % (Auto) [place] % (Auto) Eos % (Auto) Baso % (Auto) Neut # (Auto) Lymph # (Auto) [place] # (Auto) Eos # (Auto) Baso # (Auto) Sodium Potassium Chloride Carbon Dioxide Anion Gap BUN Creatinine Est GFR ( Amer) Est GFR (Non-Af Amer) POC Glucose (mg/dL) 109 Random Glucose Calcium Total Bilirubin AST ALT Alkaline Phosphatase Total Protein Albumin Globulin Albumin/Globulin Ratio Assessment & Plan - Assessment and Plan (Free Text) Assessment: 63 y/o M patient seen and evaluated for right foot infection and cellulitis with underlying osteomyelitis Plan: Patient seen and evaluated at the Bedside with Dr. Jesus. Plan discussed in details with attending Dr. Jesus Charts, labs and vitals reviewed; afebrile, WBCs 7.5 R foot wound Cx: Proteus Mirabilis, Group B strept R foot X-ray (10/13): S/P great toe amp with soft tiissue swelling consistent with cellulitis. R foot Bone scan (10/14): OM distal 2nd toe. R foot dressed using betadine and DSD. Ordered [place]/PVR ID On board; recommendations appreciated. Continue IV Abx as per ID Podiatry will continue to follow up while patient is in house - Date & Time Date: 10/15/18 Time: 12:13
--- NOTE | 2018-10-15 15:14 | CP.PCM.PN ---
Subjective - Date & Time of Evaluation Date of Evaluation: 10/15/18 Time of Evaluation: 15:12 - Subjective Subjective: CHIEF COMPLAINTS TODAY : Patient has mild pain in the right foot afebrile ROS. HEENT : N. Resp : No cough, wheezing ,pleuritic CP ,or hemoptysis Cardio : No anginal CP, PND, orthopnea, palpitation GI : No abd.pain, n/v ,diarrhea or GI bleeding . NURSES SUPERVISOR : No headache, vertigo, focal deficit. Musculoskel : No joint swelling , Derm : No rash Psych : Normal affect. Ext : Pain and swelling of the right foot PE. Pt. is alert awake in no distress. V.S As noted in the chart Head ,ear nose,throat and eyes : Normal. Neck : Supple with normal carotids. Lungs: Clear air entry. Heart : S1 & S2 normal with S4. No murmur. Abd : Soft non tender with normal bowel sounds. Neuro : Moves all ext. with no localized deficit. Ext :The right first big toe is amputated. Surgical wound appears intact except for distally there is a small opening with some pus. The second toe has some distal ulceration with surrounding cellulitis extending up to the middle part of the right leg Derm : No rashes or decubitus ulcer. LABS/RADIOLOGY: bone scan is positive for osteomyelitis the second metatarsa/phalanx ASSESSMENT/PLAN : Continue local wound care IV antibiotics patient will need short-term rehab for IV antibiotics. Objective - Vital Signs/Intake and Output Vital Signs (last 24 hours): Temp Pulse Resp BP Pulse Ox 98.0 F 87 20 129/81 96 10/15/18 07:05 10/15/18 13:57 10/15/18 07:05 10/14/18 23:30 10/14/18 23:30 - Medications Medications: Current Medications Citalopram Hydrobromide (Celexa) 20 mg PO DAILY [facility] Last Admin: 10/15/18 08:59 Dose: 20 mg Enoxaparin Sodium (Lovenox) 40 mg SC DAILY [facility] Last Admin: 10/15/18 08:59 Dose: 40 mg Hydrochlorothiazide (Microzide) 12.5 mg PO DAILY [facility] Last Admin: 10/15/18 08:59 Dose: 12.5 mg Insulin Human Regular (Novolin R) 0 unit SC [facility]; Protocol Last Admin: 10/15/18 11:23 Dose: Not Given Lisinopril (Zestril) 40 mg PO DAILY [facility] Last Admin: 10/15/18 09:02 Dose: 40 mg Metformin HCl (Glucophage) 1,000 mg PO BID [facility] Last Admin: 10/15/18 08:59 Dose: 1,000 mg Pneumococcal Polyvalent Vaccine (Pneumovax 23 Vaccine) 0.5 ml IM .ONCE ONE Stop: 10/16/18 10:01 Rosuvastatin Calcium (Crestor) 10 mg PO HS [facility] Last Admin: 10/14/18 21:32 Dose: 10 mg - Labs Labs: 10/15/18 07:59 10/15/18 07:59 PT 13.7 SECONDS (9.7-12.2) H 10/13/18 14:04 INR 1.3 10/13/18 14:04 APTT 29 SECONDS (21-34) 10/13/18 14:04
[2018-10-15] MEDS ORDERED: Piperacillin/Tazobact 3.375 GM in Sodium Chloride 100 ML IVPB SCH (22:00)
[2018-10-15] MEDS ORDERED: Piperacill/Tazo 3.375gm in Dex 3.375 GM/50 ML BAG IVPB SCH (22:00)
--- NOTE | 2018-10-15 23:41 | CP.PCM.PN ---
Subjective - Date & Time of Evaluation Date of Evaluation: 10/15/18 Time of Evaluation: 23:41 - Subjective Subjective: CHIEF COMPLAINTS TODAY : afebrile, foul odor rt.foot SEEN BY PODIATRY-and appreciated. HENNA. HEENT : N. Resp : No cough, wheezing ,pleuritic CP ,or hemoptysis Cardio : No anginal CP, PND, orthopnea, palpitation GI : No abd.pain, n/v ,diarrhea or GI bleeding . RESHIPPING CLERK : No headache, vertigo, focal deficit. Musculoskel : No joint swelling , Derm : No rash Psych : Normal affect. Ext : Pain and swelling of the right foot PE. Pt. is alert awake in no distress. V.S As noted in the chart Head ,ear nose,throat and eyes : Normal. Neck : Supple with normal carotids. Lungs: Clear air entry. Heart : S1 & S2 normal with S4. No murmur. Abd : Soft non tender with normal bowel sounds. Neuro : Moves all ext. with no localized deficit. Ext : Amputation of the right big toe. Swelling and cellulitis extending from the dorsum of the foot up to mid part of the right foot +ve drainage from sinus tract with packing,2nd digit macerated tip with dusky look-impending gangrene Derm : No rashes or decubitus ulcer. LABS/RADIOLOGY: 3 PHASE BONE SCAN +VE OM 2ND TOE ,RT. FOOT. WOUND CULTURE +VE STREP.GRP G/ PROTEUS MIRABLIS S-ZOSYN. [facility] Objective - Vital Signs/Intake and Output Vital Signs (last 24 hours): Temp Pulse Resp BP Pulse Ox 97.3 F L 80 20 129/80 96 10/15/18 16:00 10/15/18 16:00 10/15/18 16:00 10/15/18 16:00 10/15/18 16:00 - Medications Medications: Current Medications Citalopram Hydrobromide (Celexa) 20 mg PO DAILY [facility] Last Admin: 10/15/18 08:59 Dose: 20 mg Enoxaparin Sodium (Lovenox) 40 mg SC DAILY [facility] Last Admin: 10/15/18 08:59 Dose: 40 mg Hydrochlorothiazide (Microzide) 12.5 mg PO DAILY [facility] Last Admin: 10/15/18 08:59 Dose: 12.5 mg Vancomycin/Sodium Chloride (Vancomycin 1 Gm/Ns 200 Ml) 1 gm in 200 mls @ 133 mls/hr IVPB DAILY [facility]; Protocol Stop: 10/21/18 10:01 Piperacillin Sod/Tazobactam Sod (Zosyn 3.375 Gm Iv Premix) 3.375 gm in 50 mls @ 200 mls/hr IVPB Q8H [facility]; Protocol Last Admin: 10/15/18 21:37 Dose: 200 mls/hr Insulin Human Regular (Novolin R) 0 unit SC ACHS [facility]; Protocol Last Admin: 10/15/18 21:36 Dose: Not Given Lisinopril (Zestril) 40 mg PO DAILY [facility] Last Admin: 10/15/18 09:02 Dose: 40 mg Metformin HCl (Glucophage) 1,000 mg PO BID [facility] Last Admin: 10/15/18 17:47 Dose: 1,000 mg Pneumococcal Polyvalent Vaccine (Pneumovax 23 Vaccine) 0.5 ml IM .ONCE ONE Stop: 10/16/18 10:01 Rosuvastatin Calcium (Crestor) 10 mg PO HS [facility] Last Admin: 10/15/18 21:27 Dose: 10 mg - Labs Labs: 10/15/18 07:59 10/15/18 07:59 PT 13.7 SECONDS (9.7-12.2) H 10/13/18 14:04 INR 1.3 10/13/18 14:04 APTT 29 SECONDS (21-34) 10/13/18 14:04 Assessment and Plan (1) Sepsis associated hypotension Status: Acute (2) Diabetic foot infection Status: Acute (3) Cellulitis of foot Status: Acute (4) Diabetes mellitus Status: Acute (5) Hyperlipidemia associated with type 2 diabetes mellitus Status: Acute - Assessment and Plan (Free Text) Plan: DC iv zOSYN 3.375 EVERY 8 HOURLY 10/13/18. START IV MERREM 1GM IVPB Q 8 HRLY 10/16/18 CONTINUE iv VANCOMYCIN 1 G EVERY 24 HOURLY 10/13/18. F/U VANCO TROUGH LEVELS PRIOR TO THE FOURTH DOSE, AND KEEP BETWEEN 10 AND 2 0MG/DL. Continue local wound care PER PODIATRY. VASCULAR W/U IN PROGRESS.
[2018-10-16 07:14] LABS: BASO # 0.1 K/uL (0.0-0.2); BASO % 0.7 % (0.0-2.0); EOS # 0.2 K/uL (0.0-0.7); EOS % 1.9 % (0.0-4.0); HEMOGLOBIN 13.8 g/dL (12.0-18.0); LYMPH # 1.4 K/uL (1.0-4.3); LYMPH % 16.5 % (20.0-40.0); MEAN CELL VOLUME 85.8 fL (80.0-94.0); MEAN CORPUSCULAR HEMOGLOBIN 28.4 pg (27.0-31.0); MEAN CORPUSCULAR HGB CONC 33.1 g/dL (33.0-37.0); MEAN PLATELET VOLUME 7.5 fL (7.2-11.7); MONO # 0.8 K/uL (0.0-0.8); MONO % 8.7 % (0.0-10.0); NEUT # 6.3 K/uL (1.8-7.0); NEUT % 72.2 % (50.0-75.0); NRBC % 0.1 % (0.0-2.0); RBC 4.86 Mil/uL (4.40-5.90); RED CELL DISTRIBUTION WIDTH 14.5 % (11.5-14.5); WHITE BLOOD COUNT 8.7 K/uL (4.8-10.8)
[2018-10-16 08:00] LABS: ALB/GLOB RATIO 0.8 (1.0-2.1); ALBUMIN 3.7 g/dL (3.5-5.0); ALT/SGPT 32 U/L (21-72); AST/SGOT 27 U/L (17-59); BLOOD UREA NITROGEN 17 mg/dL (9-20); CALCIUM 8.9 mg/dl (8.6-10.4); GFR NON-AFRICAN AMERICAN > 60
[2018-10-16] MEDS: (Novolin R) Insulin Human Regular 100 units/ml vial SC SCH ×4 (08:09→22:05)
[2018-10-16] MEDS: Enoxaparin 40 mg Syringe SC SCH (09:53)
[2018-10-16] MEDS: Meropenem 1 GM in Sodium Chloride 0.9% 100 ML IVPB SCH ×2 (09:53→17:23)
[2018-10-16] MEDS ORDERED: Pneumococcal 23-Valent Vaccine IM ONE (10:00)
[2018-10-16] MEDS: Vancomycin 1 gm/NS 200 ml 1 GM/200 ML BAG IVPB SCH (10:59)
--- NOTE | 2018-10-16 11:56 | CP.PCM.PCO ---
Physician Communication Note - Physician Communication Note Physician Communication Note: provide medical clearance for possible R 2nd digit amp 10/17/18
--- NOTE | 2018-10-16 12:19 | CP.PCM.PN ---
Subjective - Date & Time of Evaluation Date of Evaluation: 10/16/18 Time of Evaluation: 12:19 - Subjective Subjective: CHIEF COMPLAINTS TODAY : afebrile, foul odor rt.foot PODIATRY F/U NOTED SURGERY SCHEDULED 10/18/18 PER PODIATRY. MEDICAL CLEARANCE IN PROGRESS PT FOR MYOSCAN IN AM PER CARDIOLOGY/PMD ROS. HEENT : N. Resp : No cough, wheezing ,pleuritic CP ,or hemoptysis Cardio : No anginal CP, PND, orthopnea, palpitation GI : No abd.pain, n/v ,diarrhea or GI bleeding . SERVICES DELIVERY DRIVER : No headache, vertigo, focal deficit. Musculoskel : No joint swelling , Derm : No rash Psych : Normal affect. Ext : Pain and swelling of the right foot PE. Pt. is alert awake in no distress. V.S As noted in the chart Head ,ear nose,throat and eyes : Normal. Neck : Supple with normal carotids. Lungs: Clear air entry. Heart : S1 & S2 normal with S4. No murmur. Abd : Soft non tender with normal bowel sounds. Neuro : Moves all ext. with no localized deficit. Ext : Amputation of the right big toe. Swelling and cellulitis extending from the dorsum of the foot up to mid part of the right foot +ve drainage from sinus tract with packing,2nd digit macerated tip with dusky look-impending gangrene Derm : No rashes or decubitus ulcer. LABS/RADIOLOGY: 3 PHASE BONE SCAN +VE OM 2ND TOE ,RT. FOOT. WOUND CULTURE +VE STREP.GRP G/ PROTEUS MIRABLIS S-ZOSYN. MERREM Objective - Vital Signs/Intake and Output Vital Signs (last 24 hours): Temp Pulse Resp BP Pulse Ox 97.5 F L 80 20 145/76 96 10/15/18 23:31 10/16/18 09:54 10/16/18 09:54 10/16/18 09:54 10/16/18 09:54 Intake and Output: 10/16/18 10/16/18 06:59 18:59 Intake Total 120 Balance 120 - Medications Medications: Current Medications Citalopram Hydrobromide (Celexa) 20 mg PO DAILY [facility] Last Admin: 10/16/18 09:53 Dose: 20 mg Enoxaparin Sodium (Lovenox) 40 mg SC DAILY [facility] Last Admin: 10/16/18 09:53 Dose: 40 mg Hydrochlorothiazide (Microzide) 12.5 mg PO DAILY [facility] Last Admin: 10/16/18 09:53 Dose: 12.5 mg Vancomycin/Sodium Chloride (Vancomycin 1 Gm/Ns 200 Ml) 1 gm in 200 mls @ 133 mls/hr IVPB DAILY [facility]; Protocol Stop: 10/21/18 10:01 Last Admin: 10/16/18 10:59 Dose: 133 mls/hr Meropenem 1 gm/ Sodium (Chloride) 100 mls @ 100 mls/hr IVPB Q8H [facility]; Protocol Last Admin: 10/16/18 09:53 Dose: 100 mls/hr Insulin Human Regular (Novolin R) 0 unit SC ACHS [facility]; Protocol Last Admin: 10/16/18 11:51 Dose: Not Given Lisinopril (Zestril) 40 mg PO DAILY [facility] Last Admin: 10/16/18 09:53 Dose: 40 mg Metformin HCl (Glucophage) 1,000 mg PO BID [facility] Last Admin: 10/16/18 09:53 Dose: 1,000 mg Rosuvastatin Calcium (Crestor) 10 mg PO HS [facility] Last Admin: 10/15/18 21:27 Dose: 10 mg - Labs Labs: 10/16/18 07:05 10/16/18 07:05 PT 13.7 SECONDS (9.7-12.2) H 10/13/18 14:04 INR 1.3 10/13/18 14:04 APTT 29 SECONDS (21-34) 10/13/18 14:04 Assessment and Plan (1) Sepsis associated hypotension Status: Acute (2) Diabetic foot infection Status: Acute (3) Cellulitis of foot Status: Acute (4) Diabetes mellitus Status: Acute (5) Hyperlipidemia associated with type 2 diabetes mellitus Status: Acute - Assessment and Plan (Free Text) Plan: CONTINUE IV MERREM 1GM IVPB Q 8 HRLY 10/16/18 CONTINUE iv VANCOMYCIN 1 G EVERY 24 HOURLY 10/13/18. F/U VANCO TROUGH LEVELS PRIOR TO THE FOURTH DOSE, AND KEEP BETWEEN 10 AND 20M G/DL. Continue local wound care PER PODIATRY. VASCULAR W/U IN PROGRESS. MEDICAL CLEARANCE W/U IN PROGRESS
--- NOTE | 2018-10-16 14:24 | CP.PCM.PN ---
Subjective - Date & Time of Evaluation Date of Evaluation: 10/16/18 Time of Evaluation: 14:23 - Subjective Subjective: CHIEF COMPLAINTS TODAY : afebrile, foul odor rt.foot SEEN BY PODIATRY- wants medical clearance ROS. HEENT : N. Resp : No cough, wheezing ,pleuritic CP ,or hemoptysis Cardio : No anginal CP, PND, orthopnea, palpitation GI : No abd.pain, n/v ,diarrhea or GI bleeding . 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 Musculoskel : No joint swelling , Derm : No rash Psych : Normal affect. Ext : Pain and swelling of the right foot PE. Pt. is alert awake in no distress. V.S As noted in the chart Head ,ear nose,throat and eyes : Normal. Neck : Supple with normal carotids. Lungs: Clear air entry. Heart : S1 & S2 normal with S4. No murmur. Abd : Soft non tender with normal bowel sounds. Neuro : Moves all ext. with no localized deficit. Ext : Amputation of the right big toe. Swelling and cellulitis extending from the dorsum of the foot up to mid part of the right foot +ve drainage from sinus tract with packing,2nd digit macerated tip with dusky look-impending gangrene Derm : No rashes or decubitus ulcer. LABS/RADIOLOGY: 3 PHASE BONE SCAN +VE OM 2ND TOE ,RT. FOOT. WOUND CULTURE +VE STREP.GRP G/ PROTEUS MIRABLIS S-ZOSYN. MERREM will need iv lexiscan to r/o silent CAD in DM Objective - Vital Signs/Intake and Output Vital Signs (last 24 hours): Temp Pulse Resp BP Pulse Ox 97.5 F L 80 20 145/76 96 10/15/18 23:31 10/16/18 09:54 10/16/18 09:54 10/16/18 09:54 10/16/18 09:54 Intake and Output: 10/16/18 10/16/18 11:59 23:59 Intake Total 120 Balance 120 - Medications Medications: Current Medications Citalopram Hydrobromide (Celexa) 20 mg PO DAILY [facility] Last Admin: 10/16/18 09:53 Dose: 20 mg Enoxaparin Sodium (Lovenox) 40 mg SC DAILY [facility] Last Admin: 12/17/18 09:53 Dose: 40 mg Hydrochlorothiazide (Microzide) 12.5 mg PO DAILY [facility] Last Admin: 10/16/18 09:53 Dose: 12.5 mg Vancomycin/Sodium Chloride (Vancomycin 1 Gm/Ns 200 Ml) 1 gm in 200 mls @ 133 mls/hr IVPB DAILY [facility]; Protocol Stop: 10/21/18 10:01 Last Admin: 10/16/18 10:59 Dose: 133 mls/hr Meropenem 1 gm/ Sodium (Chloride) 100 mls @ 100 mls/hr IVPB Q8H [facility]; Protocol Last Admin: 10/16/18 09:53 Dose: 100 mls/hr Insulin Human Regular (Novolin R) 0 unit SC ACHS [facility]; Protocol Last Admin: 10/16/18 11:51 Dose: Not Given Lisinopril (Zestril) 40 mg PO DAILY [facility] Last Admin: 10/16/18 09:53 Dose: 40 mg Metformin HCl (Glucophage) 1,000 mg PO BID [facility] Last Admin: 10/16/18 09:53 Dose: 1,000 mg Rosuvastatin Calcium (Crestor) 10 mg PO HS [facility] Last Admin: 10/15/18 21:27 Dose: 10 mg - Labs Labs: 10/16/18 07:05 10/16/18 07:05 PT 13.7 SECONDS (9.7-12.2) H 10/13/18 14:04 INR 1.3 10/13/18 14:04 APTT 29 SECONDS (21-34) 10/13/18 14:04
--- NOTE | 2018-10-16 17:31 | CP.PCM.PN ---
Subjective - Date & Time of Evaluation Date of Evaluation: 10/16/18 Time of Evaluation: 17:27 - Subjective Subjective: Podiatry progress note for Dr. Jesus, 63 y/o male patient seen and evaluated at bedside for right foot wound to 2nd digit. Patient reports he is doing much better, and complains of minimal pain. Patient is aware he will be going to surgery likely Tuesday10/18/18 pending medical clearance. Patient denies any F/N/V/SOB/CP Objective - Vital Signs/Intake and Output Vital Signs (last 24 hours): Temp Pulse Resp BP Pulse Ox 97.5 F L 97 H 20 145/76 96 10/15/18 23:31 10/16/18 16:00 10/16/18 09:54 10/16/18 09:54 10/16/18 14:07 Intake and Output: 10/16/18 10/16/18 06:59 18:59 Intake Total 120 Balance 120 - Medications Medications: Current Medications Citalopram Hydrobromide (Celexa) 20 mg PO DAILY [facility] Last Admin: 10/16/18 09:53 Dose: 20 mg Enoxaparin Sodium (Lovenox) 40 mg SC DAILY [facility] Last Admin: 10/16/18 09:53 Dose: 40 mg Hydrochlorothiazide (Microzide) 12.5 mg PO DAILY [facility] Last Admin: 10/16/18 09:53 Dose: 12.5 mg Vancomycin/Sodium Chloride (Vancomycin 1 Gm/Ns 200 Ml) 1 gm in 200 mls @ 133 mls/hr IVPB DAILY [facility]; Protocol Stop: 10/21/18 10:01 Last Admin: 10/16/18 10:59 Dose: 133 mls/hr Meropenem 1 gm/ Sodium (Chloride) 100 mls @ 100 mls/hr IVPB Q8H [facility]; Protocol Last Admin: 10/16/18 17:23 Dose: 100 mls/hr Insulin Human Regular (Novolin R) 0 unit SC ACHS [facility]; Protocol Last Admin: 10/16/18 17:23 Dose: Not Given Lisinopril (Zestril) 40 mg PO DAILY [facility] Last Admin: 10/16/18 09:53 Dose: 40 mg Metformin HCl (Glucophage) 1,000 mg PO BID [facility] Last Admin: 10/16/18 17:23 Dose: 1,000 mg Rosuvastatin Calcium (Crestor) 10 mg PO HS [facility] Last Admin: 10/15/18 21:27 Dose: 10 mg - Labs Labs: 10/16/18 07:05 10/16/18 07:05 PT 13.7 SECONDS (9.7-12.2) H 10/13/18 14:04 INR 1.3 10/13/18 14:04 APTT 29 SECONDS (21-34) 10/13/18 14:04 - Constitutional Appears: Well, Non-toxic, No Acute Distress - Head Exam Head Exam: ATRAUMATIC, NORMOCEPHALIC - Extremities Exam Additional comments: B/LLE focused exam: Vasc: DP/PT pulses faintly palpable 1/4 b/l. Cap refill < 3 seconds to all digits. Skin temperature gradient warm to warm from proximal to distal on the right side and warm to cool on the left side. Moderate non pitting edema and erythema noted at the right forefoot. Neuro: Gross and protective sensations are grossly diminished b/l Derm: Surgical site of right 1st toe and partial 1st met resection noted. The surgical wound is closed with no signs of dehesience but anterior to it there is an open sinus draining pus. an ulcer noted in the tip of the 2nd toe measuring 0.2cmX0.2cmX0.4cm, Probing tall the way down to bone, positive purulent drainage, Mild malodor, Moderate non pitting edema and erythema noted at the periulcerative area and extending up to the right forefoot. positive clinical signs of infection MSK: Muscle power intact 5/5 to all major muscle groups b/l. No pain on palpating the right foot periulcerative area. - Neurological Exam Neurological Exam: Alert, Awake, Oriented x3 - Psychiatric Exam Psychiatric exam: Normal Affect, Normal Mood Assessment and Plan - Assessment and Plan (Free Text) Assessment: 63 y/o M patient seen and evaluated for right foot infection and cellulitis with underlying osteomyelitis Plan: Patient seen and evaluated at the Bedside with Dr. Jesus. Plan discussed in details with attending Dr. Jesus Charts, labs and vitals reviewed; afebrile, WBC 8.7 R foot wound Cx: Proteus Mirabilis, Group B strept R foot X-ray (10/13): S/P great toe amp with soft tissue swelling consistent with cellulitis. R foot Bone scan (10/14): OM distal 2nd toe. R foot dressed using betadine and DSD. Ordered [place]/PVR- still pending ID On board; recommendations appreciated Podiatry plan- patient scheduled for the OR Tuesday10/18/18 for 2nd metatarsal amputation pending medical clearance Please provide clearance for patient Continue IV Abx as per ID Podiatry will continue to follow up while patient is in house
[2018-10-17] MEDS: Meropenem 1 GM in Sodium Chloride 0.9% 100 ML IVPB SCH ×3 (01:38→18:33)
[2018-10-17] MEDS: (Novolin R) Insulin Human Regular 100 units/ml vial SC SCH ×4 (07:29→22:49)
[2018-10-17 08:25] LABS: BASO # 0.1 K/uL (0.0-0.2); BASO % 0.7 % (0.0-2.0); EOS # 0.2 K/uL (0.0-0.7); EOS % 1.6 % (0.0-4.0); HEMOGLOBIN 14.6 g/dL (12.0-18.0); LYMPH # 1.7 K/uL (1.0-4.3); LYMPH % 17.8 % (20.0-40.0); MEAN CELL VOLUME 86.2 fL (80.0-94.0); MEAN CORPUSCULAR HEMOGLOBIN 28.9 pg (27.0-31.0); MEAN CORPUSCULAR HGB CONC 33.5 g/dL (33.0-37.0); MEAN PLATELET VOLUME 7.5 fL (7.2-11.7); MONO % 10.3 % (0.0-10.0); NEUT # 6.7 K/uL (1.8-7.0); NEUT % 69.6 % (50.0-75.0); NRBC % 0.1 % (0.0-2.0); RBC 5.05 Mil/uL (4.40-5.90); WHITE BLOOD COUNT 9.7 K/uL (4.8-10.8)
[2018-10-17 08:35] LABS: ALB/GLOB RATIO 0.9 (1.0-2.1); ALBUMIN 3.9 g/dL (3.5-5.0); ALT/SGPT 41 U/L (21-72); AST/SGOT 32 U/L (17-59); BLOOD UREA NITROGEN 24 mg/dL (9-20); CALCIUM 9.4 mg/dl (8.6-10.4); GFR NON-AFRICAN AMERICAN > 60
[2018-10-17] MEDS: Vancomycin 1 gm/NS 200 ml 1 GM/200 ML BAG IVPB SCH ×2 (10:41→14:04)
--- NOTE | 2018-10-17 14:11 | CP.PCM.PN ---
Subjective - Date & Time of Evaluation Date of Evaluation: 10/17/18 Time of Evaluation: 14:10 - Subjective Subjective: CHIEF COMPLAINTS TODAY : afebrile, foul odor rt.foot SEEN BY PODIATRY- [facility] medical clearance ROS. HEENT : N. Resp : No cough, wheezing ,pleuritic CP ,or hemoptysis Cardio : No anginal CP, PND, orthopnea, palpitation GI : No abd.pain, n/v ,diarrhea or GI bleeding . 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 Musculoskel : No joint swelling , Derm : No rash Psych : Normal affect. Ext : Pain and swelling of the right foot PE. Pt. is alert awake in no distress. V.S As noted in the chart Head ,ear nose,throat and eyes : Normal. Neck : Supple with normal carotids. Lungs: Clear air entry. Heart : S1 & S2 normal with S4. No murmur. Abd : Soft non tender with normal bowel sounds. Neuro : Moves all ext. with no localized deficit. Ext : Amputation of the right big toe. Swelling and cellulitis extending from the dorsum of the foot up to mid part of the right foot +ve drainage from sinus tract with packing,2nd digit macerated tip with dusky look-impending gangrene Derm : No rashes or decubitus ulcer. LABS/RADIOLOGY: 3 PHASE BONE SCAN +VE OM 2ND TOE ,RT. FOOT. WOUND CULTURE +VE STREP.GRP G/ PROTEUS MIRABLIS S-ZOSYN. MERREM patient is for IV Brandon stress test today Objective - Vital Signs/Intake and Output Vital Signs (last 24 hours): Temp Pulse Resp BP Pulse Ox 98.0 F 88 20 129/86 95 10/17/18 07:00 10/17/18 07:02 10/17/18 07:00 10/17/18 07:00 10/17/18 07:00 - Medications Medications: Current Medications Citalopram Hydrobromide (Celexa) 20 mg PO DAILY [facility] Last Admin: 10/17/18 10:41 Dose: Not Given Enoxaparin Sodium (Lovenox) 40 mg SC DAILY [facility] Last Admin: 10/16/18 09:53 Dose: 40 mg Hydrochlorothiazide (Microzide) 12.5 mg PO DAILY [facility] Last Admin: 10/17/18 10:41 Dose: Not Given Meropenem 1 gm/ Sodium (Chloride) 100 mls @ 100 mls/hr IVPB Q8H [facility]; Protocol Last Admin: 10/17/18 08:31 Dose: 100 mls/hr Vancomycin/Sodium Chloride (Vancomycin 1 Gm/Ns 200 Ml) 1 gm in 200 mls @ 133 ml s/hr IVPB Q12H [facility]; Protocol Stop: 10/22/18 14:01 Last Admin: 10/17/18 14:04 Dose: 133 mls/hr Insulin Human Regular (Novolin R) 0 unit SC ACHS [facility]; Protocol Last Admin: 10/17/18 11:46 Dose: Not Given Lisinopril (Zestril) 40 mg PO DAILY [facility] Last Admin: 10/17/18 10:41 Dose: Not Given Metformin HCl (Glucophage) 1,000 mg PO BID [facility] Last Admin: 10/17/18 10:41 Dose: Not Given Rosuvastatin Calcium (Crestor) 10 mg PO HS [facility] Last Admin: 10/16/18 21:15 Dose: 10 mg - Labs Labs: 10/17/18 08:17 10/17/18 08:17 PT 13.7 SECONDS (9.7-12.2) H 10/13/18 14:04 INR 1.3 10/13/18 14:04 APTT 29 SECONDS (21-34) 10/13/18 14:04
[2018-10-17] MEDS ORDERED: Caffeine Citrated **INJ** 20 MG/ML IV ONE (15:42)
--- NOTE | 2018-10-17 16:52 | CP.PCM.PN ---
Subjective - Date & Time of Evaluation Date of Evaluation: 10/17/18 Time of Evaluation: 16:48 - Subjective Subjective: Podiatry - Dr. Jesus 63M seen and evaluated for right 2nd digit wound. NAD. No acute events overnight. Patient back from part 1 of stress test this AM, scheduled for part 2 along with [place]/PVR this afternoon. No new lower extremity complaints. Patient denies any F/N/V/SOB/CP Objective - Vital Signs/Intake and Output Vital Signs (last 24 hours): Temp Pulse Resp BP Pulse Ox 98.0 F 88 20 129/86 95 10/17/18 07:00 10/17/18 07:02 10/17/18 07:00 10/17/18 07:00 10/17/18 07:00 Intake and Output: 10/17/18 10/17/18 06:59 18:59 Intake Total 420 Output Total 450 Balance -30 - Medications Medications: Current Medications Citalopram Hydrobromide (Celexa) 20 mg PO DAILY [facility] Last Admin: 10/17/18 10:41 Dose: Not Given Enoxaparin Sodium (Lovenox) 40 mg SC DAILY [facility] Last Admin: 10/16/18 09:53 Dose: 40 mg Hydrochlorothiazide (Microzide) 12.5 mg PO DAILY [facility] Last Admin: 10/17/18 10:41 Dose: Not Given Meropenem 1 gm/ Sodium (Chloride) 100 mls @ 100 mls/hr IVPB Q8H [facility]; Protocol Last Admin: 10/17/18 08:31 Dose: 100 mls/hr Vancomycin/Sodium Chloride (Vancomycin 1 Gm/Ns 200 Ml) 1 gm in 200 mls @ 133 mls/hr IVPB Q12H [facility]; Protocol Stop: 10/22/18 14:01 Last Admin: 10/17/18 14:04 Dose: 133 mls/hr Insulin Human Regular (Novolin R) 0 unit SC ACHS [facility]; Protocol Last Admin: 10/17/18 11:46 Dose: Not Given Lisinopril (Zestril) 40 mg PO DAILY [facility] Last Admin: 10/17/18 10:41 Dose: Not Given Metformin HCl (Glucophage) 1,000 mg PO BID [facility] Last Admin: 10/17/18 10:41 Dose: Not Given Rosuvastatin Calcium (Crestor) 10 mg PO HS [facility] Last Admin: 10/16/18 21:15 Dose: 10 mg - Labs Labs: 10/17/18 08:17 10/17/18 08:17 PT 13.7 SECONDS (9.7-12.2) H 10/13/18 14:04 INR 1.3 10/13/18 14:04 APTT 29 SECONDS (21-34) 10/13/18 14:04 - Constitutional Appears: Non-toxic, No Acute Distress - Extremities Exam Additional comments: B/L LE focused exam: Vasc: DP/PT pulses faintly palpable 1/4 b/l. Cap refill < 3 seconds to all digits. Skin temperature gradient warm to warm from proximal to distal on the right side and warm to cool on the left side. Moderate non pitting edema and erythema noted at the right forefoot. Neuro: Gross and protective sensations are grossly diminished b/l Derm: Surgical site of right 1st toe and partial 1st met resection noted. The surgical wound is closed with no signs of dehesience but anterior to it there is an open sinus draining pus. an ulcer noted in the tip of the 2nd toe measuring 0.2cmX0.2cmX0.4cm, Probing tall the way down to bone, positive purulent drainage, Mild malodor, Moderate non pitting edema and erythema noted at the periulcerative area and extending up to the right forefoot. positive clinical signs of infection MSK: Muscle power intact 5/5 to all major muscle groups b/l. No pain on palpating the right foot periulcerative area. - Neurological Exam Neurological Exam: Alert, Awake, Oriented x3 - Psychiatric Exam Psychiatric exam: Normal Affect, Normal Mood Assessment and Plan - Assessment and Plan (Free Text) Assessment: 63M with right foot cellulitis + underlying osteomyelitis Plan: Patient seen and evaluated Discussed with attending, Dr. Jesus Afebrile, WBC 9.7 R foot wound Cx: Proteus Mirabilis, Group B strep R foot X-ray (10/13): S/P great toe amp with soft tissue swelling consistent with cellulitis. R foot Bone scan (10/14): OM distal 2nd toe. R foot dressed using betadine and DSD. [place]/PVR pending Continue abx per ID - Meropenem, Vancomycin To OR 8:00AM right 2nd metatarsal amputation Medical clearance in progress Podiatry will continue to follow
--- NOTE | 2018-10-17 22:58 | CP.PCM.PN ---
Subjective - Date & Time of Evaluation Date of Evaluation: 10/17/18 Time of Evaluation: 22:58 - Subjective Subjective: CHIEF COMPLAINTS TODAY : afebrile, foul odor rt.foot PODIATRY F/U NOTED MEDICAL CLEARANCE IN PROGRESS PT FOR MYOSCAN TODAY ROS. HEENT : N. Resp : No cough, wheezing ,pleuritic CP ,or hemoptysis Cardio : No anginal CP, PND, orthopnea, palpitation GI : No abd.pain, n/v ,diarrhea or GI bleeding . 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 Musculoskel : No joint swelling , Derm : No rash Psych : Normal affect. Ext : Pain and swelling of the right foot PE. Pt. is alert awake in no distress. V.S As noted in the chart Head ,ear nose,throat and eyes : Normal. Neck : Supple with normal carotids. Lungs: Clear air entry. Heart : S1 & S2 normal with S4. No murmur. Abd : Soft non tender with normal bowel sounds. Neuro : Moves all ext. with no localized deficit. Ext : Amputation of the right big toe. Swelling and cellulitis extending from the dorsum of the foot up to mid part of the right foot +ve drainage from sinus tract with packing,2nd digit macerated tip with dusky look-impending gangrene Derm : No rashes or decubitus ulcer. LABS/RADIOLOGY: 3 PHASE BONE SCAN +VE OM 2ND TOE ,RT. FOOT. WOUND CULTURE +VE STREP.GRP G/ PROTEUS MIRABLIS S-ZOSYN. MERREM Objective - Vital Signs/Intake and Output Vital Signs (last 24 hours): Temp Pulse Resp BP Pulse Ox 97.7 F 98 H 20 129/88 97 10/17/18 18:20 10/17/18 18:20 10/17/18 18:20 10/17/18 18:20 10/17/18 18:20 - Medications Medications: Current Medications Citalopram Hydrobromide (Celexa) 20 mg PO DAILY [facility] Last Admin: 10/17/18 10:41 Dose: Not Given Enoxaparin Sodium (Lovenox) 40 mg SC DAILY [facility] Last Admin: 10/16/18 09:53 Dose: 40 mg Hydrochlorothiazide (Microzide) 12.5 mg PO DAILY [facility] Last Admin: 10/17/18 10:41 Dose: Not Given Meropenem 1 gm/ Sodium (Chloride) 100 mls @ 100 mls/hr IVPB Q8H [facility]; Protocol Last Admin: 10/17/18 18:33 Dose: 100 mls/hr Vancomycin/Sodium Chloride (Vancomycin 1 Gm/Ns 200 Ml) 1 gm in 200 mls @ 133 mls/hr IVPB Q12H [facility]; Protocol Stop: 10/22/18 14:01 Last Admin: 10/17/18 14:04 Dose: 133 mls/hr Insulin Human Regular (Novolin R) 0 unit SC ACHS [facility]; Protocol Last Admin: 10/17/18 22:49 Dose: Not Given Lisinopril (Zestril) 40 mg PO DAILY [facility] Last Admin: 10/17/18 10:41 Dose: Not Given Metformin HCl (Glucophage) 1,000 mg PO BID [facility] Last Admin: 10/17/18 18:34 Dose: 1,000 mg Rosuvastatin Calcium (Crestor) 10 mg PO HS [facility] Last Admin: 10/17/18 21:25 Dose: 10 mg - Labs Labs: 10/17/18 08:17 10/17/18 08:17 PT 13.7 SECONDS (9.7-12.2) H 10/13/18 14:04 INR 1.3 10/13/18 14:04 APTT 29 SECONDS (21-34) 10/13/18 14:04 Assessment and Plan (1) Sepsis associated hypotension Status: Acute (2) Diabetic foot infection Status: Acute (3) Cellulitis of foot Status: Acute (4) Diabetes mellitus Status: Acute (5) Hyperlipidemia associated with type 2 diabetes mellitus Status: Acute - Assessment and Plan (Free Text) Plan: CONTINUE IV MERREM 1GM IVPB Q 8 HRLY 10/16/18 INCREASE iv VANCOMYCIN 1 G EVERY 12 HOURLY 10/13/18.( as Vanco trough level < 5.0 ) Check 2D ECHO R/O ENDOCARDITIS/ AND PREOP LVF Continue local wound care PER PODIATRY. VASCULAR W/U IN PROGRESS. OR AFTER MEDICAL CLEARANCE. CASE DISCUSSED WITH PMD DR KRISHNAMURTHY.
[2018-10-18] MEDS: Meropenem 1 GM in Sodium Chloride 0.9% 100 ML IVPB SCH ×3 (00:30→17:34)
[2018-10-18] MEDS: Vancomycin 1 gm/NS 200 ml 1 GM/200 ML BAG IVPB SCH ×2 (01:30→13:27)
[2018-10-18] MEDS: (Novolin R) Insulin Human Regular 100 units/ml vial SC SCH ×4 (07:53→22:54)
--- NOTE | 2018-10-18 08:20 | CP.PCM.PN ---
Subjective - Date & Time of Evaluation Date of Evaluation: 10/18/18 Time of Evaluation: 08:20 - Subjective Subjective: Podiatry - Dr. Jesus 63M seen and evaluated for right 2nd digit wound. NAD. No acute events overnight. No new lower extremity complaints. Patient denies any F/N/V/SOB/CP. To OR tomorrow for right 2nd digit amp. Objective - Vital Signs/Intake and Output Vital Signs (last 24 hours): Temp Pulse Resp BP Pulse Ox 98.0 F 73 20 142/97 H 95 10/18/18 07:00 10/18/18 07:38 10/18/18 07:00 10/18/18 07:00 10/18/18 07:00 Intake and Output: 10/18/18 10/18/18 06:59 18:59 Intake Total 420 Output Total 300 Balance 120 - Medications Medications: Current Medications Citalopram Hydrobromide (Celexa) 20 mg PO DAILY [facility] Last Admin: 10/17/18 10:41 Dose: Not Given Enoxaparin Sodium (Lovenox) 40 mg SC DAILY [facility] Last Admin: 10/16/18 09:53 Dose: 40 mg Hydrochlorothiazide (Microzide) 12.5 mg PO DAILY [facility] Last Admin: 10/17/18 10:41 Dose: Not Given Meropenem 1 gm/ Sodium (Chloride) 100 mls @ 100 mls/hr IVPB Q8H [facility]; Protocol Last Admin: 10/18/18 00:30 Dose: 100 mls/hr Vancomycin/Sodium Chloride (Vancomycin 1 Gm/Ns 200 Ml) 1 gm in 200 mls @ 133 mls/hr IVPB Q12H [facility]; Protocol Stop: 10/22/18 14:01 Last Admin: 10/18/18 01:30 Dose: 133 mls/hr Insulin Human Regular (Novolin R) 0 unit SC ACHS [facility]; Protocol Last Admin: 10/18/18 07:53 Dose: Not Given Lisinopril (Zestril) 40 mg PO DAILY [facility] Last Admin: 10/17/18 10:41 Dose: Not Given Metformin HCl (Glucophage) 1,000 mg PO BID [facility] Last Admin: 10/17/18 18:34 Dose: 1,000 mg Rosuvastatin Calcium (Crestor) 10 mg PO HS [facility] Last Admin: 10/17/18 21:25 Dose: 10 mg - Labs Labs: 10/17/18 08:17 10/17/18 08:17 PT 13.7 SECONDS (9.7-12.2) H 10/13/18 14:04 INR 1.3 10/13/18 14:04 APTT 29 SECONDS (21-34) 10/13/18 14:04 - Constitutional Appears: Non-toxic, No Acute Distress - Extremities Exam Additional comments: B/L LE focused exam: Vasc: DP/PT pulses faintly palpable 1/4 b/l. Cap refill < 3 seconds to all digits. Skin temperature gradient warm to warm from proximal to distal on the right side and warm to cool on the left side. Moderate non pitting edema and erythema noted at the right forefoot. Neuro: Gross and protective sensations are grossly diminished b/l Derm: Surgical site of right 1st toe and partial 1st met resection noted. The surgical wound is closed with no signs of dehesience but anterior to it there is an open sinus draining pus. an ulcer noted in the tip of the 2nd toe measuring 0.2cmX0.2cmX0.4cm, Probing tall the way down to bone, positive purulent drai nage, Mild malodor, Moderate non pitting edema and erythema noted at the periulcerative area and extending up to the right forefoot. positive clinical signs of infection MSK: Muscle power intact 5/5 to all major muscle groups b/l. No pain on palpating the right foot periulcerative area. - Neurological Exam Neurological Exam: Alert, Awake, Oriented x3 - Psychiatric Exam Psychiatric exam: Normal Affect, Normal Mood Assessment and Plan - Assessment and Plan (Free Text) Assessment: 63M with right foot cellulitis + underlying osteomyelitis Plan: Patient seen and evaluated with attending, Dr. Jesus Afebrile, WBC 9.8 R foot wound Cx: Proteus Mirabilis, Group B strep R foot X-ray (10/13): S/P great toe amp with soft tissue swelling consistent with cellulitis. R foot Bone scan (10/14): OM distal 2nd toe. R foot dressed using betadine and DSD. [place]/PVR: No hemodynamically significant arterial insufficiency Continue abx per ID - Meropenem, Vancomycin To OR 8:00AM right 2nd metatarsal amputation Per Dr. Kurtz, patient medically clear for surgery tomorrow NPO @ mn PT/INR next day AM Podiatry will continue to follow
[2018-10-18 09:03] LABS: BASO # 0.1 K/uL (0.0-0.2); BASO % 0.9 % (0.0-2.0); EOS # 0.2 K/uL (0.0-0.7); LYMPH # 1.9 K/uL (1.0-4.3); LYMPH % 19.1 % (20.0-40.0); MEAN CELL VOLUME 85.8 fL (80.0-94.0); MEAN CORPUSCULAR HEMOGLOBIN 28.7 pg (27.0-31.0); MEAN CORPUSCULAR HGB CONC 33.5 g/dL (33.0-37.0); MEAN PLATELET VOLUME 7.7 fL (7.2-11.7); MONO # 1.1 K/uL (0.0-0.8); MONO % 11.1 % (0.0-10.0); NEUT # 6.5 K/uL (1.8-7.0); NEUT % 66.9 % (50.0-75.0); NRBC % 0.1 % (0.0-2.0); RBC 5.21 Mil/uL (4.40-5.90); RED CELL DISTRIBUTION WIDTH 14.9 % (11.5-14.5); WHITE BLOOD COUNT 9.8 K/uL (4.8-10.8)
[2018-10-18 09:13] LABS: ALB/GLOB RATIO 0.9 (1.0-2.1); ALBUMIN 4.1 g/dL (3.5-5.0); ALT/SGPT 43 U/L (21-72); AST/SGOT 32 U/L (17-59); BLOOD UREA NITROGEN 24 mg/dL (9-20); CALCIUM 9.7 mg/dl (8.6-10.4); GFR NON-AFRICAN AMERICAN > 60
--- NOTE | 2018-10-18 12:45 | CARD ---
APPROVED REPORT Date of service: 10/18/2018 EXAM: Two-dimensional and M-mode echocardiogram with Doppler and color Doppler. RISK FACTORS Hypertension Hyperlipidemia Diabetes 2D DIMENSIONS IVSd1.2 (0.7-1.1cm)Aortic Root (2D)3.7 (2.0-3.7cm) LVDd4.6 (3.9-5.9cm)PWd1.2 (0.7-1.1cm) LA Mchoml57 (18-58mL)LVDs3.1 (2.5-4.0cm) FS (%) 32.3 %LVEF (%)60.6 (>50%) LVEF ([place]'s)56 %IVC0.00 cm M-Mode DIMENSIONS Left Atrium (MM)4.87 (2.5-4.0cm)IVSd0.95 (0.7-1.1cm) Aortic Root3.34 (2.2-3.7cm)LVDd6.54 (4.0-5.6cm) Aortic Cusp Exc.2.20 (1.5-2.0cm)PWd1.15 (0.7-1.1cm) FS (%) 34 %LVDs4.30 (2.0-3.8cm) LVEF (%)62 (>50%) Mitral Valve MV E Gtdjyehv72.3cm/sMV A Klcxeare69.7cm/sE/A ratio0.5 TDI Lateral E' Peak V9.32cm/sMedial E' Peak V6.42cm/sE/Lateral E'3.9 E/Medial E'5.7 Tricuspid Valve TR Peak Pnbeneji079ie/sTR Peak Gr.[id number] LEFT VENTRICLE The left ventricle is normal size. There is normal left ventricular wall thickness. The left ventricular function is normal. The left ventricular ejection fraction is within the normal range. No regional wall motion abnormalities noted. The left ventricular diastolic function is normal. No left ventricle thrombus noted on this study. There is no ventricular septal defect visualized. There is no left ventricular aneurysm. There is no mass noted in the left ventricle. RIGHT VENTRICLE The right ventricle is normal size. There is normal right ventricular wall thickness. The right ventricular systolic function is normal. ATRIA The left atrium size is normal. The right atrium size is normal. The interatrial septum is intact with no evidence for an atrial septal defect. AORTIC VALVE The aortic valve is normal in structure and function. No aortic regurgitation is present. There is no aortic valvular stenosis. There is no aortic valvular vegetation. MITRAL VALVE The mitral valve is normal in structure and function. There is no evidence of mitral valve prolapse. There is no mitral valve stenosis. There is no mitral valve regurgitation noted. TRICUSPID VALVE The tricuspid valve is normal in structure and function. There is no tricuspid valve regurgitation noted. There is no tricuspid valve prolapse or vegetation. There is no tricuspid valve stenosis. PULMONIC VALVE The pulmonary valve is normal in structure and function. There is no pulmonic valvular regurgitation. There is no pulmonic valvular stenosis. GREAT VESSELS The aortic root is normal in size. The ascending aorta is normal in size. The pulmonary artery is normal. The IVC is normal in size and collapses >50% with inspiration. PERICARDIAL EFFUSION The pericardium appears normal. There is no pleural effusion. <Conclusion> The left ventricular function is normal. The left ventricular ejection fraction is within the normal range. No regional wall motion abnormalities noted.
--- NOTE | 2018-10-18 13:18 | VASCLAB ---
Date of service: 10/17/2018 STUDY DESCRIPTION: Lower Extremity Arterial Exam (PVR). HISTORY: Non healing infected ulcers of the right foot PRIORS: None. TECHNIQUE: Pulse volume recording waveforms and segmental pressures of bilateral lower extremities at multiple levels were obtained. Ankle Brachial Indices (ABIs) were calculated. Report prepared by TOÑA Cornejo, RVT RIGHT LOWER EXTREMITY: * Brachial artery: Pressure - 153 mmHg. * High thigh: Pressure - 188 mmHg: Ratio - 1.23: PVR waveform - Pulsatile * Low thigh: Pressure - 182 mmHg: Ratio - 1.19 PVR waveform: Pulsatile * Calf: Pressure - 162 mmHg: Ratio - 1.06 PVR waveform: Pulsatile * Posterior tibial Artery: Pressure - 160 mmHg: Ratio - 1.05 PVR waveform: Pulsatile * Dorsalis pedis Artery: Pressure - 175 mmHg: Ratio - 1.14 PVR waveform: Pulsatile * Great toe: Pressure - mmHg: Ratio - PVR waveform: Ankle brachial index (CHEYENNE): 1.14 LEFT LOWER EXTREMITY: * Brachial artery: Pressure - 148 mmHg. * High thigh: Pressure - 184 mmHg: Ratio - 1.20: PVR waveform - Pulsatile * Low thigh: Pressure - 191 mmHg: Ratio - 1.25 PVR waveform: Pulsatile * Calf: Pressure - 187 mmHg: Ratio - 1.22 PVR waveform: Pulsatile * Posterior tibial Artery: Pressure - 170 mmHg: Ratio - 1.11 PVR waveform: Pulsatile * Dorsalis pedis Artery: Pressure - 168 mmHg: Ratio - 1.10 PVR waveform: Pulsatile * Great toe: Pressure - mmHg: Ratio - PVR waveform: Ankle brachial index (CHEYENNE): 1.11 OTHER FINDINGS: Right: Left: IMPRESSION: Right: There was no evidence of hemodynamically significant arterial insufficiency in the right lower extremity. Left: There was no evidence of hemodynamically significant arterial insufficiency in the left lower extremity.
--- NOTE | 2018-10-18 13:51 | CP.PCM.PN ---
Subjective - Date & Time of Evaluation Date of Evaluation: 10/18/18 Time of Evaluation: 13:49 - Subjective Subjective: CHIEF COMPLAINTS TODAY : afebrile, foul odor rt.foot SEEN BY PODIATRY- wants medical clearance ROSTonya HEENT : N. Resp : No cough, wheezing ,pleuritic CP ,or hemoptysis Cardio : No anginal CP, PND, orthopnea, palpitation GI : No abd.pain, n/v ,diarrhea or GI bleeding . 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 Musculoskel : No joint swelling , Derm : No rash Psych : Normal affect. Ext : Pain and swelling of the right foot PE. Pt. is alert awake in no distress. V.S As noted in the chart Head ,ear nose,throat and eyes : Normal. Neck : Supple with normal carotids. Lungs: Clear air entry. Heart : S1 & S2 normal with S4. No murmur. Abd : Soft non tender with normal bowel sounds. Neuro : Moves all ext. with no localized deficit. Ext : Amputation of the right big toe. Swelling and cellulitis extending from the dorsum of the foot up to mid part of the right foot +ve drainage from sinus tract with packing,2nd digit macerated tip with dusky look-impending gangrene Derm : No rashes or decubitus ulcer. LABS/RADIOLOGY: 3 PHASE BONE SCAN +VE OM 2ND TOE ,RT. FOOT. WOUND CULTURE +VE STREP.GRP G/ PROTEUS MIRABLIS S-ZOSYN. MERREM Plan. IV Lexiscan shows no evidence of ischemia. Normal left ankle ejection fraction. Echocardiogram shows no evidence of infection. Patient is medically clear for surgery for the right foot. Objective - Vital Signs/Intake and Output Vital Signs (last 24 hours): Temp Pulse Resp BP Pulse Ox 98.0 F 73 20 142/97 H 95 10/18/18 07:00 10/18/18 07:38 10/18/18 07:00 10/18/18 07:00 10/18/18 07:00 - Medications Medications: Current Medications Citalopram Hydrobromide (Celexa) 20 mg PO DAILY [facility] Last Admin: 10/18/18 09:50 Dose: 20 mg Enoxaparin Sodium (Lovenox) 40 mg SC DAILY [facility] Last Admin: 10/16/18 09:53 Dose: 40 mg Hydrochlorothiazide (Microzide) 12.5 mg PO DAILY [facility] Last Admin: 10/18/18 09:50 Dose: 12.5 mg Meropenem 1 gm/ Sodium (Chloride) 100 mls @ 100 mls/hr IVPB Q8H [facility]; Protocol Last Admin: 10/18/18 08:26 Dose: 100 mls/hr Vancomycin/Sodium Chloride (Vancomycin 1 Gm/Ns 200 Ml) 1 gm in 200 mls @ 133 mls/hr IVPB Q12H [facility]; Protocol Stop: 10/22/18 14:01 Last Admin: 10/18/18 13:27 Dose: 133 mls/hr Insulin Human Regular (Novolin R) 0 unit SC ACHS [facility]; Protocol Last Admin: 10/18/18 12:34 Dose: Not Given Lisinopril (Zestril) 40 mg PO DAILY [facility] Last Admin: 10/18/18 09:50 Dose: 40 mg Metformin HCl (Glucophage) 1,000 mg PO BID [facility] Last Admin: 10/18/18 09:50 Dose: 1,000 mg Rosuvastatin Calcium (Crestor) 10 mg PO HS [facility] Last Admin: 10/17/18 21:25 Dose: 10 mg - Labs Labs: 10/18/18 08:48 10/18/18 08:48 PT 13.7 SECONDS (9.7-12.2) H 10/13/18 14:04 INR 1.3 10/13/18 14:04 APTT 29 SECONDS (21-34) 10/13/18 14:04
--- NOTE | 2018-10-18 14:38 | CP.PCM.PN ---
Subjective - Date & Time of Evaluation Date of Evaluation: 10/18/18 Time of Evaluation: 14:38 - Subjective Subjective: CHIEF COMPLAINTS TODAY : afebrile, rt.foot IN DRESSING PODIATRY F/U NOTED MEDICAL CLEARANCE IN PROGRESS MYOSCAN REPORTED NEGATIVE FOR ISCHEMIA PER CARDIOLOGY. ROS. HEENT : N. Resp : No cough, wheezing ,pleuritic CP ,or hemoptysis Cardio : No anginal CP, PND, orthopnea, palpitation GI : No abd.pain, n/v ,diarrhea or GI bleeding . 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 Musculoskel : No joint swelling , Derm : No rash Psych : Normal affect. Ext : Pain and swelling of the right foot PE. Pt. is alert awake in no distress. V.S As noted in the chart Head ,ear nose,throat and eyes : Normal. Neck : Supple with normal carotids. Lungs: Clear air entry. Heart : S1 & S2 normal with S4. No murmur. Abd : Soft non tender with normal bowel sounds. Neuro : Moves all ext. with no localized deficit. Ext : Amputation of the right big toe. Swelling and cellulitis extending from the dorsum of the foot up to mid part of the right foot +ve drainage from sinus tract with packing,2nd digit macerated tip with dusky look-impending gangrene Derm : No rashes or decubitus ulcer. LABS/RADIOLOGY: 3 PHASE BONE SCAN +VE OM 2ND TOE ,RT. FOOT. WOUND CULTURE +VE STREP.GRP G/ PROTEUS MIRABLIS S-ZOSYN. MERREM 2-d ECHO NEGATIVE FOR INFECTION PER CARDIOLOGY. Objective - Vital Signs/Intake and Output Vital Signs (last 24 hours): Temp Pulse Resp BP Pulse Ox 98.0 F 73 20 142/97 H 95 10/18/18 07:00 10/18/18 07:38 10/18/18 07:00 10/18/18 07:00 10/18/18 07:00 Intake and Output: 10/18/18 10/18/18 06:59 18:59 Intake Total 420 Output Total 300 Balance 120 - Medications Medications: Current Medications Citalopram Hydrobromide (Celexa) 20 mg PO DAILY [facility] Last Admin: 10/18/18 09:50 Dose: 20 mg Enoxaparin Sodium (Lovenox) 40 mg SC DAILY [facility] Last Admin: 10/16/18 09:53 Dose: 40 mg Hydrochlorothiazide (Microzide) 12.5 mg PO DAILY [facility] Last Admin: 10/18/18 09:50 Dose: 12.5 mg Meropenem 1 gm/ Sodium (Chloride) 100 mls @ 100 mls/hr IVPB Q8H [facility]; Protocol Last Admin: 10/18/18 08:26 Dose: 100 mls/hr Vancomycin/Sodium Chloride (Vancomycin 1 Gm/Ns 200 Ml) 1 gm in 200 mls @ 133 mls/hr IVPB Q12H [facility]; Protocol Stop: 10/22/18 14:01 Last Admin: 10/18/18 13:27 Dose: 133 mls/hr Insulin Human Regular (Novolin R) 0 unit SC ACHS [facility]; Protocol Last Admin: 10/18/18 12:34 Dose: Not Given Lisinopril (Zestril) 40 mg PO DAILY [facility] Last Admin: 10/18/18 09:50 Dose: 40 mg Metformin HCl (Glucophage) 1,000 mg PO BID [facility] Last Admin: 10/18/18 09:50 Dose: 1,000 mg Rosuvastatin Calcium (Crestor) 10 mg PO HS [facility] Last Admin: 10/17/18 21:25 Dose: 10 mg - Labs Labs: 10/18/18 08:48 10/18/18 08:48 PT 13.7 SECONDS (9.7-12.2) H 10/13/18 14:04 INR 1.3 10/13/18 14:04 APTT 29 SECONDS (21-34) 10/13/18 14:04 Assessment and Plan (1) Sepsis associated hypotension Status: Acute (2) Diabetic foot infection Status: Acute (3) Cellulitis of foot Status: Acute (4) Diabetes mellitus Status: Acute (5) Hyperlipidemia associated with type 2 diabetes mellitus Status: Acute - Assessment and Plan (Free Text) Plan: CONTINUE IV MERREM 1GM IVPB Q 8 HRLY 10/16/18 INCREASE iv VANCOMYCIN 1 G EVERY 12 HOURLY 10/13/18.( as Vanco trough level < 5.0 ) PER CARDIOLOGY/PMD , PATIENT CLEARED FOR SURGERY. Continue local wound care SURGERY PER PODIATRY. CASE DISCUSSED WITH NURSE PRACTITIONER MS PATEL. PATIENT WILL NEED PICC LINE FOR iv ANTIBIOTICS POST SURGICAL INTERVENTION DURATION OF ANTIBIOTICS WILL DEPEND ON DEBRIDEMENT/VS AMPUTATION OF THE SECOND OM TOE. WILL DISCUSS IN A.M.
[2018-10-19] MEDS: Meropenem 1 GM in Sodium Chloride 0.9% 100 ML IVPB SCH ×4 (01:30→16:12)
[2018-10-19] MEDS: Vancomycin 1 gm/NS 200 ml 1 GM/200 ML BAG IVPB SCH ×2 (02:35→14:30)
[2018-10-19 07:00] LABS: BASO # 0.1 K/uL (0.0-0.2); BASO % 1.1 % (0.0-2.0); EOS # 0.2 K/uL (0.0-0.7); EOS % 1.8 % (0.0-4.0); HEMOGLOBIN 14.5 g/dL (12.0-18.0); LYMPH % 22.3 % (20.0-40.0); MEAN CELL VOLUME 85.8 fL (80.0-94.0); MEAN CORPUSCULAR HEMOGLOBIN 28.9 pg (27.0-31.0); MEAN CORPUSCULAR HGB CONC 33.7 g/dL (33.0-37.0); MEAN PLATELET VOLUME 7.6 fL (7.2-11.7); MONO # 0.9 K/uL (0.0-0.8); MONO % 10.4 % (0.0-10.0); NEUT # 5.7 K/uL (1.8-7.0); NEUT % 64.4 % (50.0-75.0); NRBC % 0.1 % (0.0-2.0); RED CELL DISTRIBUTION WIDTH 14.8 % (11.5-14.5); WHITE BLOOD COUNT 8.9 K/uL (4.8-10.8)
[2018-10-19] MEDS: (Novolin R) Insulin Human Regular 100 units/ml vial SC SCH ×4 (07:21→21:31)
[2018-10-19 07:33] LABS: ALB/GLOB RATIO 0.9 (1.0-2.1); ALBUMIN 3.9 g/dL (3.5-5.0); ALT/SGPT 41 U/L (21-72); AST/SGOT 46 U/L (17-59); BLOOD UREA NITROGEN 23 mg/dL (9-20); CALCIUM 9.2 mg/dl (8.6-10.4); GFR NON-AFRICAN AMERICAN > 60
[2018-10-19] MEDS ORDERED: Lidocaine 2% MPF (5 ml) Inj ONE (07:42)
[2018-10-19] MEDS ORDERED: Bupivacaine 0.25% 20 ML INJ IJ ONE (07:42)
[2018-10-19 07:44] LABS: INR 1.2; PROTHROMBIN TIME 12.8 SECONDS (9.7-12.2)
[2018-10-19] MEDS ORDERED: Propofol 10 mg/ml Inj (20 ML) ONE (07:55)
[2018-10-19] MEDS ORDERED: Midazolam 2 MG/2 ML VIAL ONE (07:55)
--- NOTE | 2018-10-19 09:08 | PCM.SURG1 ---
Surgeon's Initial Post Op Note - Surgeon's Notes Surgeon: Dr. Jesus, DPM Fluid Power Mechanic: Dr. Tarah Marinelli, PGY1 Type of Anesthesia: IV Sedation, Local Anesthesia Administered By: Dr. Briones Pre-Operative Diagnosis: Right 2nd digit osteomyelitis Operative Findings: see dictation. I: 20 cc 2% Lidocaine and 0.25% Marcaine plain. M: 3-0 Nylon Post-Operative Diagnosis: same Operation Performed: right 2nd digit amputation Specimen/Specimens Removed: 1) devitalized tendon. 2) 2nd digit right Estimated Blood Loss: EBL {In ML}: 5 Blood Products Given: N/A Drains Used: No Drains Post-Op Condition: Good Date of Surgery/Procedure: 10/19/18 Time of Surgery/Procedure: 09:09
[2018-10-19] MEDS ORDERED: Oxycodone/Acetaminophen 5/325 mg Tab PO PRN ×2 (09:10)
[2018-10-19] MEDS ORDERED: Lactated Ringer's 1,000 ML IV SCH (09:30)
[2018-10-19] MEDS ORDERED: HYDROmorphone 0.5 mg/0.5 ml ISec IVP PRN (10:00)
--- NOTE | 2018-10-19 10:40 | RAD ---
Date of service: 10/19/2018 PROCEDURE: Right Foot Radiographs. HISTORY: s/p right 2nd digit amputation COMPARISON: 10/13/2018 FINDINGS: BONES: There is interval amputation of the 2nd digit-at the proximal phalanx midshaft level. The prior amputated 1st metatarsal appearance is similar no cortical interruption here seen. Exuberant possibly fragmented os trigonum similar in appearance. Prominent inferior calcaneal spurring present as before. Slight interval wedging of the lateral navicular bone compared to the prior study-interval accentuated dorsal midfoot osteophytosis noted. No interval periosteal reaction noted. No interval cortical destruction seen. JOINTS: As above. Arthrosis multifocal midfoot and tibiotalar. Are toe like orientations also noted. SOFT TISSUES: Diffuse soft tissue swelling with mottled density at the amputated 1st and 2nd digit site. Correlate clinically with any obvious ulcers here and/or postop soft tissue changes regarding differential considerations for this appearance Overlying bandaging present. OTHER FINDINGS: None. IMPRESSION: Interval postop changes amputation 2nd toe as detailed above. No periosteal reaction or gross cortical interruption seen here to suggest interval osteomyelitis. Stable appearance to the 1st metatarsal amputated appearance. Soft tissue changes consistent with cellulitis and/or recent postop changes. Correlate clinically. Slight decreased wedging of the lateral navicular bone-either due to projection and/or interval morphological changes as referenced above. Slight interval increase dorsal osteophytosis noted. Exuberant inferior calcaneal spurring-similar. Similar large possibly fragmented os trigone EM-also similar. Tibiotalar and midfoot osteoarthrosis-similar.
--- NOTE | 2018-10-19 13:48 | CP.PCM.PN ---
Subjective - Date & Time of Evaluation Date of Evaluation: 10/19/18 Time of Evaluation: 13:46 - Subjective Subjective: CHIEF COMPLAINTS TODAY : S/P R. 2ND TOE AMPUTATION ROS. HEENT : N. Resp : No cough, wheezing ,pleuritic CP ,or hemoptysis Cardio : No anginal CP, PND, orthopnea, palpitation GI : No abd.pain, n/v ,diarrhea or GI bleeding . 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 Musculoskel : No joint swelling , Derm : No rash Psych : Normal affect. Ext : Pain and swelling of the right foot PE. Pt. is alert awake in no distress. V.S As noted in the chart Head ,ear nose,throat and eyes : Normal. Neck : Supple with normal carotids. Lungs: Clear air entry. Heart : S1 & S2 normal with S4. No murmur. Abd : Soft non tender with normal bowel sounds. Neuro : Moves all ext. with no localized deficit. Ext : Amputation of the right big toe. POST OP BANDAGES +ve drainage from sinus tract with packing,2nd digit macerated tip with dusky look-impending gangrene Derm : No rashes or decubitus ulcer. LABS/RADIOLOGY: 3 PHASE BONE SCAN +VE OM 2ND TOE ,RT. FOOT. WOUND CULTURE +VE STREP.GRP G/ PROTEUS MIRABLIS S-ZOSYN. MERREM Plan. CONT POST OP CARE MONITOR [facility] Objective - Vital Signs/Intake and Output Vital Signs (last 24 hours): Temp Pulse Resp BP Pulse Ox 97.1 F L 74 20 157/92 H 96 10/19/18 10:05 10/19/18 10:37 10/19/18 10:37 10/19/18 10:37 10/19/18 10:37 Intake and Output: 10/19/18 10/19/18 11:59 23:59 Intake Total 400 Output Total 200 Balance 200 - Medications Medications: Current Medications Acetaminophen (Tylenol 325mg Tab) 650 mg PO Q6 PRN PRN Reason: Pain, Mild (1-3) Citalopram Hydrobromide (Celexa) 20 mg PO DAILY [facility] Last Admin: 10/19/18 10:43 Dose: 20 mg Enoxaparin Sodium (Lovenox) 40 mg SC DAILY [facility] Last Admin: 10/16/18 09:53 Dose: 40 mg Hydrochlorothiazide (Microzide) 12.5 mg PO DAILY [facility] Last Admin: 10/19/18 10:43 Dose: 12.5 mg Meropenem 1 gm/ Sodium (Chloride) 100 mls @ 100 mls/hr IVPB Q8H [facility]; Protocol Last Admin: 10/19/18 10:43 Dose: 100 mls/hr Vancomycin/Sodium Chloride (Vancomycin 1 Gm/Ns 200 Ml) 1 gm in 200 mls @ 133 mls/hr IVPB Q12H [facility]; Protocol Stop: 10/22/18 14:01 Last Admin: 10/19/18 02:35 Dose: 133 mls/hr Insulin Human Regular (Novolin R) 0 unit SC ACHS [facility]; Protocol Last Admin: 10/19/18 12:27 Dose: 2 units Lisinopril (Zestril) 40 mg PO DAILY [facility] Last Admin: 10/19/18 10:44 Dose: 40 mg Metformin HCl (Glucophage) 1,000 mg PO BID [facility] Last Admin: 10/19/18 10:44 Dose: 1,000 mg Oxycodone/Acetaminophen (Percocet 5/325 Mg Tab) 1 tab PO Q4H PRN PRN Reason: Pain, moderate (4-7) Stop: 10/22/18 09:11 Oxycodone/Acetaminophen (Percocet 5/325 Mg Tab) 2 tab PO Q4H PRN PRN Reason: Pain, severe (8-10) Stop: 10/22/18 09:11 Rosuvastatin Calcium (Crestor) 10 mg PO HS [facility] Last Admin: 10/18/18 21:29 Dose: 10 mg - Labs Labs: 10/19/18 06:52 10/19/18 06:52 PT 12.8 SECONDS (9.7-12.2) H 10/19/18 06:52 INR 1.2 10/19/18 06:52 APTT 28 SECONDS (21-34) 10/19/18 06:52
--- NOTE | 2018-10-19 19:58 | CP.PCM.PN ---
Subjective - Date & Time of Evaluation Date of Evaluation: 10/19/18 Time of Evaluation: 19:58 - Subjective Subjective: SEEN POST OP.. AFEBRILE VSS C/O PAIN POST OPT. SITE.. FOOT IN DRESSING Operation Performed: right 2nd digit amputation Specimen/Specimens Removed: 1) devitalized tendon. 2) 2nd digit right Objective - Vital Signs/Intake and Output Vital Signs (last 24 hours): Temp Pulse Resp BP Pulse Ox 97.6 F 96 H 20 119/86 96 10/19/18 15:05 10/19/18 15:05 10/19/18 15:05 10/19/18 15:05 10/19/18 15:05 Intake and Output: 10/19/18 10/20/18 18:59 06:59 Intake Total 400 Balance 400 - Medications Medications: Current Medications Acetaminophen (Tylenol 325mg Tab) 650 mg PO Q6 PRN PRN Reason: Pain, Mild (1-3) Citalopram Hydrobromide (Celexa) 20 mg PO DAILY [facility] Last Admin: 10/19/18 10:43 Dose: 20 mg Enoxaparin Sodium (Lovenox) 40 mg SC DAILY [facility] Last Admin: 10/16/18 09:53 Dose: 40 mg Hydrochlorothiazide (Microzide) 12.5 mg PO DAILY [facility] Last Admin: 10/19/18 10:43 Dose: 12.5 mg Meropenem 1 gm/ Sodium (Chloride) 100 mls @ 100 mls/hr IVPB Q8H [facility]; Protocol Last Admin: 10/19/18 16:12 Dose: 100 mls/hr Vancomycin/Sodium Chloride (Vancomycin 1 Gm/Ns 200 Ml) 1 gm in 200 mls @ 133 mls/hr IVPB Q12H [facility]; Protocol Stop: 10/22/18 14:01 Last Admin: 10/19/18 14:30 Dose: 133 mls/hr Insulin Human Regular (Novolin R) 0 unit SC ACHS [facility]; Protocol Last Admin: 10/19/18 17:41 Dose: Not Given Lisinopril (Zestril) 40 mg PO DAILY [facility] Last Admin: 10/19/18 10:44 Dose: 40 mg Metformin HCl (Glucophage) 1,000 mg PO BID [facility] Last Admin: 10/19/18 17:42 Dose: 1,000 mg Oxycodone/Acetaminophen (Percocet 5/325 Mg Tab) 1 tab PO Q4H PRN PRN Reason: Pain, moderate (4-7) Stop: 10/22/18 09:11 Oxycodone/Acetaminophen (Percocet 5/325 Mg Tab) 2 tab PO Q4H PRN PRN Reason: Pain, severe (8-10) Stop: 10/22/18 09:11 Rosuvastatin Calcium (Crestor) 10 mg PO HS [facility] Last Admin: 10/18/18 21:29 Dose: 10 mg - Labs Labs: 10/19/18 06:52 10/19/18 06:52 PT 12.8 SECONDS (9.7-12.2) H 10/19/18 06:52 INR 1.2 10/19/18 06:52 APTT 28 SECONDS (21-34) 10/19/18 06:52 - Constitutional Appears: No Acute Distress - Head Exam Head Exam: NORMAL INSPECTION - Eye Exam Eye Exam: EOMI, PERRL - ENT Exam ENT Exam: Normal Oropharynx - Neck Exam Neck Exam: Normal Inspection - Respiratory Exam Respiratory Exam: Clear to Ausculation Bilateral, NORMAL BREATHING PATTERN - Cardiovascular Exam Cardiovascular Exam: REGULAR RHYTHM, +S1, +S2 - GI/Abdominal Exam GI & Abdominal Exam: Soft, Normal Bowel Sounds - Extremities Exam Extremities Exam: Pedal Edema. absent: Calf Tenderness - Neurological Exam Neurological Exam: Awake, CN II-XII Intact, Oriented x3 - Psychiatric Exam Psychiatric exam: Normal Mood - Skin Skin Exam: Normal Color, Warm Assessment and Plan (1) Sepsis associated hypotension Status: Acute (2) Diabetic foot infection Assessment & Plan: S/P AMPUTATION RT. FOOT 2ND DIGIT. 10/19/18 POST OPT CARE. IV ABX. Status: Acute (3) Cellulitis of foot Status: Acute (4) Diabetes mellitus Status: Acute (5) Hyperlipidemia associated with type 2 diabetes mellitus Status: Acute - Assessment and Plan (Free Text) Plan: CONTINUE IV MERREM 1GM IVPB Q 8 HRLY 10/16/18 X 4 WEEKS ON iv VANCOMYCIN 1 G EVERY 12 HOURLY 10/13/18. X 4 WEEKS F/U VANCO TROUGH LEVEL WEEKLY X 4WEEKS EVERY TUESDAY. KEEP VANCO TROUGH BTWEEN 10-20MC/DL LWC PER PODIATRY. PT WILL NEED A PICC LINE FOR IV ABX F/U CBC W DIFF, CMP AND LFTS WEEKLY X 4 WKS EACH TUESDAY AND NOTIFY PMD. WILL F/U PT. WHILE IN HOSPITAL.
[2018-10-20] MEDS: Meropenem 1 GM in Sodium Chloride 0.9% 100 ML IVPB SCH ×2 (00:52→09:48)
[2018-10-20] MEDS: Vancomycin 1 gm/NS 200 ml 1 GM/200 ML BAG IVPB SCH ×2 (02:05→13:10)
--- NOTE | 2018-10-20 06:59 | OP ---
PROCEDURE DATE: 10/19/2018 SURGEON: Marcos Jesus DPM WORLD GEOGRAPHY TEACHER: Thomas Fletcher MD, PGY-1 ANESTHESIOLOGIST: Dr. Briones ANESTHESIA: IV sedation with local anesthesia. PREOPERATIVE DIAGNOSIS: Osteomyelitis at the right second digit. POSTOPERATIVE DIAGNOSIS: Osteomyelitis at the right second digit. NAME OF PROCEDURE: Right second digit amputation with removal of all nonviable soft tissue and bone. INDICATIONS: The patient is a 53-year-old male with the above diagnosis. The patient has exhausted all conservative treatments at this time and now requires surgical intervention. The patient signed the consent after careful explanation of risks, benefits, complications and alternatives for surgical procedure. No guarantees were given nor implied. NPO status was confirmed prior to taking the patient to the operating room. PREPARATION: The patient was brought into the operating room, placed on the operating room table in a supine position. Time-out was performed for identification of the correct patient and procedure. The patient received a total of 20 mL of 1:1 mixture of 0.25% Marcaine and 2% lidocaine plain in local V-block type fashion at the level of the right second metatarsophalangeal joint. The right foot was then prepped and draped in a normal sterile manner, and the procedure began. No tourniquet was used during the procedure. Attention was then drawn to the plantar aspect of the first metatarsal head where the vitalized nerves excised from a 0.5 cm x 0.5 cm ulceration. The ulceration was closed with 3-0 nylon simple sutures. Attention was then drawn to the dorsal aspect of the right second digit where a racquet type incision was made at the level of the second metatarsophalangeal joint using a #15 blade. The incision was then extended down through the subcutaneous layers to the level of the bone. Using a #15 blade and Lumpkin and Collar scissors, all soft tissue attachments were freed from the bone. Using second digit proximal phalanx was cut. Using a bone clamp to stabilize the second digit, the second digit was then disarticulated from the foot at the level of the metatarsophalangeal joint, was passed from the operating field and sent to Pathology. The tissue was debulked using a sterile #15 fresh blade. The surgical site was then copiously flushed with sterile saline. At this time, a 3-0 nylon was used to reapproximate the skin edges at the amputation site in a simple and horizontal sutures. The incision site was then dressed with Xeroform, 4x4 gauze, abdominal pads, Kerlix, and Coban. POSTOPERATIVE CONDITION: The patient tolerated the anesthesia and procedure well and was escorted to the recovery room with vital signs stable and neurovascular status intact to the right foot. Podiatry will continue to follow the patient while he remains in-house. THOMAS FLETCHER MD Marcos Jesus DPM
[2018-10-20 07:11] LABS: BASO # 0.1 K/uL (0.0-0.2); EOS # 0.1 K/uL (0.0-0.7); EOS % 1.8 % (0.0-4.0); HEMOGLOBIN 14.3 g/dL (12.0-18.0); LYMPH # 1.9 K/uL (1.0-4.3); LYMPH % 23.2 % (20.0-40.0); MEAN CELL VOLUME 85.7 fL (80.0-94.0); MEAN CORPUSCULAR HEMOGLOBIN 28.6 pg (27.0-31.0); MEAN CORPUSCULAR HGB CONC 33.4 g/dL (33.0-37.0); MEAN PLATELET VOLUME 7.6 fL (7.2-11.7); MONO # 0.9 K/uL (0.0-0.8); MONO % 11.1 % (0.0-10.0); NEUT % 62.9 % (50.0-75.0); NRBC % 0.1 % (0.0-2.0); RED CELL DISTRIBUTION WIDTH 14.9 % (11.5-14.5)
[2018-10-20 07:15] LABS: ALB/GLOB RATIO 0.9 (1.0-2.1); ALBUMIN 3.9 g/dL (3.5-5.0); ALT/SGPT 33 U/L (21-72); AST/SGOT 26 U/L (17-59); BLOOD UREA NITROGEN 22 mg/dL (9-20); CALCIUM 9.2 mg/dl (8.6-10.4); GFR NON-AFRICAN AMERICAN > 60
[2018-10-20 08:32] VITALS: O2SAT 96
[2018-10-20] MEDS: (Novolin R) Insulin Human Regular 100 units/ml vial SC SCH ×2 (08:39→13:10)
--- NOTE | 2018-10-20 12:23 | CP.PCM.PN ---
Subjective - Date & Time of Evaluation Date of Evaluation: 10/20/18 Time of Evaluation: 12:23 - Subjective Subjective: Podiatry - Dr. Jesus 63M seen and evaluated this AM POD#1 right 2nd digit amputation. Patient resting comfortably, NAD. No acute events overnight. Patient denies any pain to right foot surgical site. States he has been NWB RLE. Denies n/v/f/d/c/sob. Objective - Vital Signs/Intake and Output Vital Signs (last 24 hours): Temp Pulse Resp BP Pulse Ox 97.5 F L 75 18 142/90 96 10/20/18 07:20 10/20/18 07:20 10/20/18 07:20 10/20/18 07:20 10/20/18 07:20 Intake and Output: 10/20/18 10/20/18 06:59 18:59 Intake Total 580 Output Total 850 Balance -270 - Medications Medications: Current Medications Acetaminophen (Tylenol 325mg Tab) 650 mg PO Q6 PRN PRN Reason: Pain, Mild (1-3) Citalopram Hydrobromide (Celexa) 20 mg PO DAILY [facility] Last Admin: 10/20/18 09:48 Dose: 20 mg Enoxaparin Sodium (Lovenox) 40 mg SC DAILY [facility] Last Admin: 10/16/18 09:53 Dose: 40 mg Hydrochlorothiazide (Microzide) 12.5 mg PO DAILY [facility] Last Admin: 10/20/18 09:48 Dose: 12.5 mg Meropenem 1 gm/ Sodium (Chloride) 100 mls @ 100 mls/hr IVPB Q8H [facility]; Protocol Last Admin: 10/20/18 09:48 Dose: 100 mls/hr Vancomycin/Sodium Chloride (Vancomycin 1 Gm/Ns 200 Ml) 1 gm in 200 mls @ 133 mls/hr IVPB Q12H [facility]; Protocol Stop: 10/22/18 14:01 Last Admin: 10/20/18 02:05 Dose: 133 mls/hr Insulin Human Regular (Novolin R) 0 unit SC ACHS [facility]; Protocol Last Admin: 10/20/18 08:39 Dose: Not Given Lisinopril (Zestril) 40 mg PO DAILY [facility] Last Admin: 10/20/18 09:48 Dose: 40 mg Metformin HCl (Glucophage) 1,000 mg PO BID [facility] Last Admin: 10/20/18 09:48 Dose: 1,000 mg Oxycodone/Acetaminophen (Percocet 5/325 Mg Tab) 1 tab PO Q4H PRN PRN Reason: Pain, moderate (4-7) Stop: 10/22/18 09:11 Oxycodone/Acetaminophen (Percocet 5/325 Mg Tab) 2 tab PO Q4H PRN PRN Reason: Pain, severe (8-10) Stop: 10/22/18 09:11 Rosuvastatin Calcium (Crestor) 10 mg PO HS [facility] Last Admin: 10/19/18 21:31 Dose: 10 mg - Labs Labs: 10/20/18 06:52 10/20/18 06:52 PT 12.8 SECONDS (9.7-12.2) H 10/19/18 06:52 INR 1.2 10/19/18 06:52 APTT 28 SECONDS (21-34) 10/19/18 06:52 - Constitutional Appears: Well, Non-toxic, No Acute Distress - Extremities Exam Additional comments: B/L LE focused exam: Vasc: DP/PT pulses faintly palpable 1/4 b/l. Cap refill < 3 seconds to all digits. Skin temperature gradient warm to warm from proximal to distal on the right side and warm to cool on the left side. Moderate non pitting edema and erythema noted at the right forefoot. Neuro: Gross and protective sensations are grossly diminished b/l Derm: Linear incisions noted to 2nd digit amputation site appear well-coapted with sutures intact and no evidence of wound dehiscence; no drainage; no pu rulence; no fluctuance; erythema resolving; no malodor. MSK: Muscle power intact 5/5 to all major muscle groups b/l. s/p right hallux and right 2nd digit amputation. - Neurological Exam Neurological Exam: Alert, Awake, Oriented x3 - Psychiatric Exam Psychiatric exam: Normal Affect, Normal Mood Assessment and Plan - Assessment and Plan (Free Text) Assessment: 63M with right foot cellulitis + underlying osteomyelitis POD#1 right 2nd digit amputation (DOS 10/19/18) Plan: Patient seen and evaluated with attending, Dr. Jesus Afebrile, WBC 8.0 R foot wound Cx: Proteus Mirabilis, Group B strep R foot X-ray (10/13): S/P great toe amp with soft tissue swelling consistent with cellulitis. R foot Bone scan (10/14): OM distal 2nd toe. R foot dressed using betadine and DSD. [place]/PVR: No hemodynamically significant arterial insufficiency Continue abx per ID - Meropenem, Vancomycin Stable for dc per podiatry Dispo planning: dc to [facility] Patient will follow up with Dr. Jesus at rehab facility Podiatry will continue to follow
--- NOTE | 2018-10-20 12:58 | CP.PCM.PN ---
Subjective - Date & Time of Evaluation Date of Evaluation: 10/20/18 Time of Evaluation: 12:58 - Subjective Subjective: POST OP..# day 1 AFEBRILE VSS resting comfortably FOOT IN DRESSING. PT FOR ALEX TODAY . PT WILL GET PICC LINE IN REHAB. DISCUSSED W STAFF DURATION OF ANTIBIOTICS. LABS NOTED ; VANCO TROUGH 11.8 OK. RENAL FUNCTION OK. Objective - Vital Signs/Intake and Output Vital Signs (last 24 hours): Temp Pulse Resp BP Pulse Ox 97.5 F L 75 18 142/90 96 10/20/18 07:20 10/20/18 07:20 10/20/18 07:20 10/20/18 07:20 10/20/18 07:20 Intake and Output: 10/20/18 10/20/18 06:59 18:59 Intake Total 580 Output Total 850 Balance -270 - Medications Medications: Current Medications Acetaminophen (Tylenol 325mg Tab) 650 mg PO Q6 PRN PRN Reason: Pain, Mild (1-3) Citalopram Hydrobromide (Celexa) 20 mg PO DAILY [facility] Last Admin: 10/20/18 09:48 Dose: 20 mg Enoxaparin Sodium (Lovenox) 40 mg SC DAILY [facility] Last Admin: 10/16/18 09:53 Dose: 40 mg Hydrochlorothiazide (Microzide) 12.5 mg PO DAILY [facility] Last Admin: 10/20/18 09:48 Dose: 12.5 mg Meropenem 1 gm/ Sodium (Chloride) 100 mls @ 100 mls/hr IVPB Q8H [facility]; Protocol Last Admin: 10/20/18 09:48 Dose: 100 mls/hr Vancomycin/Sodium Chloride (Vancomycin 1 Gm/Ns 200 Ml) 1 gm in 200 mls @ 133 mls/hr IVPB Q12H [facility]; Protocol Stop: 10/22/18 14:01 Last Admin: 10/20/18 02:05 Dose: 133 mls/hr Insulin Human Regular (Novolin R) 0 unit SC ACHS [facility]; Protocol Last Admin: 10/20/18 08:39 Dose: Not Given Lisinopril (Zestril) 40 mg PO DAILY [facility] Last Admin: 10/20/18 09:48 Dose: 40 mg Metformin HCl (Glucophage) 1,000 mg PO BID [facility] Last Admin: 10/20/18 09:48 Dose: 1,000 mg Oxycodone/Acetaminophen (Percocet 5/325 Mg Tab) 1 tab PO Q4H PRN PRN Reason: Pain, moderate (4-7) Stop: 10/22/18 09:11 Oxycodone/Acetaminophen (Percocet 5/325 Mg Tab) 2 tab PO Q4H PRN PRN Reason: Pain, severe (8-10) Stop: 10/22/18 09:11 Rosuvastatin Calcium (Crestor) 10 mg PO HS [facility] Last Admin: 10/19/18 21:31 Dose: 10 mg - Labs Labs: 10/20/18 06:52 10/20/18 06:52 PT 12.8 SECONDS (9.7-12.2) H 10/19/18 06:52 INR 1.2 10/19/18 06:52 APTT 28 SECONDS (21-34) 10/19/18 06:52 - Constitutional Appears: No Acute Distress - Head Exam Head Exam: NORMAL INSPECTION - Eye Exam Eye Exam: EOMI, PERRL - ENT Exam ENT Exam: Normal Oropharynx - Neck Exam Neck Exam: Normal Inspection - Respiratory Exam Respiratory Exam: Clear to Ausculation Bilateral, NORMAL BREATHING PATTERN - Cardiovascular Exam Cardiovascular Exam: REGULAR RHYTHM, +S1, +S2 - GI/Abdominal Exam GI & Abdominal Exam: Soft, Normal Bowel Sounds - Extremities Exam Extremities Exam: Pedal Edema (RT. FOOT IN DRESSING.). absent: Calf Tenderness - Neurological Exam Neurological Exam: Awake, CN II-XII Intact, Oriented x3 - Psychiatric Exam Psychiatric exam: Normal Mood - Skin Skin Exam: Normal Color, Warm Assessment and Plan (1) Sepsis associated hypotension Assessment & Plan: RESOLVED. Status: Acute (2) Diabetic foot infection Assessment & Plan: S/P AMPUTATION RT. FOOT 2ND DIGIT. 10/19/18 POST OPT CARE. IV ABX. Status: Acute (3) Cellulitis of foot Status: Acute (4) Diabetes mellitus Status: Acute (5) Hyperlipidemia associated with type 2 diabetes mellitus Status: Acute - Assessment and Plan (Free Text) Plan: CONTINUE IV MERREM 1GM IVPB Q 8 HRLY 10/16/18 X 4 WEEKS ON iv VANCOMYCIN 1 G EVERY 12 HOURLY 10/13/18. X 4 WEEKS F/U VANCO TROUGH LEVEL WEEKLY X 4WEEKS EVERY TUESDAY. KEEP VANCO TROUGH BTWEEN 10-20MC/DL LWC PER PODIATRY. PT WILL NEED A PICC LINE FOR IV ABX F/U CBC W DIFF, CMP AND LFTS WEEKLY X 4 WKS EACH TUESDAY AND NOTIFY PMD. WILL F/U PT. WHILE IN HOSPITAL. CASE DISCUSSED WITH SOFTWARE APPLICATION TESTER MS WANG.
--- NOTE | 2018-10-20 13:53 | CP.PCM.DIS ---
Provider - Provider Date of Admission: 10/13/18 14:59 Attending physician: Karis Kurtz MD Consults: 10/13/18 17:37 Infectious Disease Consult Routine Comment: id consult Consulting Provider: Harjit Means Consulting Physician: Harjit Means Reason for Consult: cellulitis,sepsis 10/14/18 20:52 Podiatry Consult Routine Comment: Consulting Provider: Marcos Jesus Consulting Physician: Marcos Jesus Reason for Consult: R great toe amputation 07/201810/16/18 11:00 Discharge Planning [Case Management Referral] Routine Comment: Physician Instructions: [facility]LLOYD FOR IV AB Reason For Exam: Reason for Referral: Discharge Planning Time Spent in preparation of Discharge (in minutes): 30 Hospital Course - Lab Results Lab Results: Micro Results 10/13/18 14:17 Blood Blood Culture - Final NO GROWTH AFTER 5 DAYS 10/13/18 14:17 Blood Gram Stain - Final TEST NOT PERFORMED 10/13/18 14:13 Blood Blood Culture - Final NO GROWTH AFTER 5 DAYS 10/13/18 14:13 Blood Gram Stain - Final TEST NOT PERFORMED 10/13/18 22:00 Foot - Right Gram Stain - Final 10/13/18 22:00 Foot - Right Wound Culture - Final Proteus Mirabilis Group G Streptococcus 10/13/18 Unknown Urine,Clean Catch Urine Culture - Final No Growth (<1,000 CFU/ML) Most Recent Lab Values WBC 8.0 K/uL (4.8-10.8) 10/20/18 06:52 RBC 5.00 Mil/uL (4.40-5.90) 10/20/18 06:52 Hgb 14.3 g/dL (12.0-18.0) 10/20/18 06:52 Hct 42.9 % (35.0-51.0) 10/20/18 06:52 MCV 85.7 fL (80.0-94.0) 10/20/18 06:52 MCH 28.6 pg (27.0-31.0) 10/20/18 06:52 MCHC 33.4 g/dL (33.0-37.0) 10/20/18 06:52 RDW 14.9 % (11.5-14.5) H 10/20/18 06:52 Plt Count 425 K/uL (130-400) H 10/20/18 06:52 MPV 7.6 fL (7.2-11.7) 10/20/18 06:52 Neut % (Auto) 62.9 % (50.0-75.0) 10/20/18 06:52 Lymph % (Auto) 23.2 % (20.0-40.0) 10/20/18 06:52 [place] % (Auto) 11.1 % (0.0-10.0) H 10/20/18 06:52 Eos % (Auto) 1.8 % (0.0-4.0) 10/20/18 06:52 Baso % (Auto) 1.0 % (0.0-2.0) 10/20/18 06:52 Neut # (Auto) 5.0 K/uL (1.8-7.0) 10/20/18 06:52 Lymph # (Auto) 1.9 K/uL (1.0-4.3) 10/20/18 06:52 [place] # (Auto) 0.9 K/uL (0.0-0.8) H 10/20/18 06:52 Eos # (Auto) 0.1 K/uL (0.0-0.7) 10/20/18 06:52 Baso # (Auto) 0.1 K/uL (0.0-0.2) 10/20/18 06:52 ESR 70 mm/hr (0-15) H 10/14/18 06:28 PT 12.8 SECONDS (9.7-12.2) H 10/19/18 06:52 INR 1.2 10/19/18 06:52 APTT 28 SECONDS (21-34) 10/19/18 06:52 pO2 40 mm/Hg (30-55) 10/13/18 16:15 VBG pH 7.43 (7.32-7.43) 10/13/18 16:15 VBG pCO2 34 mmHg (40-60) L 10/13/18 16:15 VBG HCO3 23.5 mmol/L 10/13/18 16:15 VBG Total CO2 23.6 mmol/L (22-28) 10/13/18 16:15 VBG O2 Sat (Calc) 78.9 % (40-65) H 10/13/18 16:15 VBG Base Excess -1.1 mmol/L (0.0-2.0) L 10/13/18 16:15 VBG Potassium 4.1 mmol/L (3.6-5.2) 10/13/18 16:15 Sodium 139.0 mmol/l (132-148) 10/13/18 16:15 Chloride 111.0 mmol/L (98-107) H 10/13/18 16:15 Glucose 103 mg/dl (75-110) 10/13/18 16:15 Lactate 2.0 mmol/L (0.7-2.1) 10/13/18 16:15 Crit Value Called To Rn 10/13/18 13:45 Crit Value Called By Gabo cruz 10/13/18 13:45 Crit Value Read Back Rn 10/13/18 13:45 Blood Gas Notified Time 1425 10/13/18 13:45 Sodium 137 mmol/L (132-148) 10/20/18 06:52 Potassium 4.5 mmol/L (3.6-5.2) 10/20/18 06:52 Chloride 105 mmol/L (98-107) 10/20/18 06:52 Carbon Dioxide 23 mmol/L (22-30) 10/20/18 06:52 Anion Gap 14 (10-20) 10/20/18 06:52 BUN 22 mg/dL (9-20) H 10/20/18 06:52 Creatinine 0.9 mg/dL (0.8-1.5) 10/20/18 06:52 Est GFR ( Amer) > 60 10/20/18 06:52 Est GFR (Non-Af Amer) > 60 10/20/18 06:52 POC Glucose (mg/dL) 102 mg/dL (65-110) 10/20/18 06:30 Random Glucose 114 mg/dL (75-110) H 10/20/18 06:52 Calcium 9.2 mg/dl (8.6-10.4) 10/20/18 06:52 Phosphorus 3.9 mg/dL (2.5-4.5) 10/13/18 14:04 Magnesium 2.1 mg/dL (1.6-2.3) 10/13/18 14:04 Total Bilirubin 0.8 mg/dL (0.2-1.3) 10/20/18 06:52 Direct Bilirubin 0.4 mg/dL (0.0-0.4) 10/14/18 06:28 AST 26 U/L (17-59) 10/20/18 06:52 ALT 33 U/L (21-72) 10/20/18 06:52 Alkaline Phosphatase 85 U/L (38-126) 10/20/18 06:52 C-React Prot High Sens > 15.00 mg/L (1.00-3.00) H 10/14/18 06:28 Total Protein 8.2 g/dL (6.3-8.3) 10/20/18 06:52 Albumin 3.9 g/dL (3.5-5.0) 10/20/18 06:52 Globulin 4.3 gm/dL (2.2-3.9) H 10/20/18 06:52 Albumin/Globulin Ratio 0.9 (1.0-2.1) L 10/20/18 06:52 Venous Blood Potassium 4.1 mmol/L (3.6-5.2) 10/13/18 16:15 Urine Color Yellow (YELLOW) 10/13/18 14:18 Urine Clarity Hazy (Clear) 10/13/18 14:18 Urine pH 5.0 (5.0-8.0) 10/13/18 14:18 Ur Specific [place] 1.018 (1.003-1.030) 10/13/18 14:18 Urine Protein 1+ mg/dL (NEGATIVE) H 10/13/18 14:18 Urine Glucose (UA) Normal mg/dL (Normal) 10/13/18 14:18 Urine Ketones Negative mg/dL (NEGATIVE) 10/13/18 14:18 Urine Blood Negative (NEGATIVE) 10/13/18 14:18 Urine Nitrate Negative (NEGATIVE) 10/13/18 14:18 Urine Bilirubin Negative (NEGATIVE) 10/13/18 14:18 Urine Urobilinogen 2.0 mg/dL (0.2-1.0) 10/13/18 14:18 Ur Leukocyte Esterase Trace Adam/uL (Negative) 10/13/18 14:18 Urine WBC (Auto) 29 /hpf (0-5) H 10/13/18 14:18 Urine RBC (Auto) 3 /hpf (0-3) 10/13/18 14:18 Ur Squamous Epith Cells < 1 /hpf (0-5) 10/13/18 14:18 Hyaline Casts 3-5 /lpf (0-2) H 10/13/18 14:18 Vancomycin Trough 11.8 ug/mL (5.0-10.0) H 10/19/18 01:21 - Hospital Course Hospital Course: 63 years old white male admitted with cellulitis of the right foot. A few months ago patient had amputation of the right big toe and [facility] in [place]. After that patient was admitted to rehab and patient had a complete healing of the right foot. Recently patient is complaining of now swelling of the right lower extremity with pain discomfort. Patient presented to [facility] Emergency Room and found to be tachycardic with slightly hypotensive. Currently patient has a cellulitis of the right foot. PAST HIST. Patient has a history of type II diabetes [id number] hypertension and hypercholesteremia. Patient has no history of coronary artery disease or carotid artery disease patient also has been checked for peripheral vascular disease and he denies it. Patient has no other medical illness in the past Patient was admitted on the floor and treated with comprehensive diabetic management. ID consult was obtained and patient was put on IV antibiotics. Cultures grew gram negatives Proteus and strep group G Podiatry consult was obtained. Bone scan was positive for osteomyelitis of the second toe of the right foot. Patient underwent amputation of the right second toe. Prior to that patient had a complete cardiac workup which was negative for any underlying significant coronary artery disease. Currently patient is stable postoperatively [facility] will continue IV antibiotics after placement of PICC line and local wound care and diabetes management. Discharge Exam - Head Exam Head Exam: NORMAL INSPECTION Discharge Plan - Follow Up Plan Condition: SERIOUS Disposition: HOME/ ROUTINE
[2018-10-21 01:44] VITALS: BP 140/80; PULSE 76; RESP 20; TEMP 98
== END 2018-10-20 16:42 | DRG 616 ==
LOC: C.ER 12:46 → C.6T 14:59
PROVIDERS: ADMIT Internal Medicine Cardiovascular Disease; ATTEND Internal Medicine Cardiovascular Disease
PROC: 0Y6R0Z0 Detachment at Right 2nd Toe, Complete, Open Approach (ICD-10-PCS; principal; 2018-10-19 08:00)
DX: E11.69 Type 2 diabetes mellitus with other specified complication (principal); A41.9 Sepsis, unspecified organism; R65.20 Severe sepsis without septic shock; L03.115 Cellulitis of right lower limb; M86.171 Other acute osteomyelitis, right ankle and foot; E11.621 Type 2 diabetes mellitus with foot ulcer; E78.00 Pure hypercholesterolemia, unspecified; F32.9 Major depressive disorder, single episode, unspecified; L97.519 Non-pressure chronic ulcer of other part of right foot with unspecified severity; I10 Essential (primary) hypertension; Z89.411 Acquired absence of right great toe; R00.0 Tachycardia, unspecified; R26.2 Difficulty in walking, not elsewhere classified; B96.4 Proteus (mirabilis) (morganii) as the cause of diseases classified elsewhere